=== PATIENT | male | born 1995 ===

== ENCOUNTER 2018-12-06 15:42 | Inpatient (IN) | payer OTHER ==
--- NOTE | 2018-12-06 17:26 | ED ---
Altered Mental Status - HPI Summary HPI Summary: This patient is a 23 year old male presenting to [facility] accompanied by friends with a chief complaint of AMS since 5 hours ago. According to patient, he was supposed to get a ride to [facility] from a friend, but his friend did not show up on time. Patient then decided to walk to [facility]. Patients friends became concerned for him when he did no answer his phone. Patient eventually crossed paths with them on the road, still walking. Patient states that lots of the background seemed the same, so I cant be really descriptive. Patient does not seem aware of how long he had been walking, but his friends state that he had been walking for around 5 hours. Patient was then brought to the ED for concerns of exposure and possible MHE. Patient additionally complains of midline neck pain in the base of his skill and double vision last night. Patient states that the neck pain is no longer bothering him. Patient denies any mechanism of injury and further denies chest pain, SOB, abd pain. The pain is rated 4/10 in severity. Symptoms aggravated by nothing. Symptoms alleviated by nothing. Afterwards, we talked to patients close friend, who is a resident at [facility]-- Bret Tenorio ([phone])--who explained further. According to the friend, the patient has a long history of insomnia spends long hours absorbed into one subject or another. Occasionally, he becomes very excited about it and has an elevated mood that is mildly manic, but not delusional. 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 The friend also notes that he has been contacting his family less than usual and having some angrier conversations. Todays walking episode was prompted when another friend, Kush, came to pick him up for [facility]. Kush states that the patient presented with paranoid delusions, telling him, How can I trust you, and fearing that Kush had a weapon. Kush then went to the [facility] and the patient was gone upon his return. On the way out of town, his friends noticed the patient walking on the side of the road. Upon picking him up, he was very disoriented and didnt know where he was or what day of the week it was. 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 Patient would also keep repeating the same thing and would trip over his words, e.g saying fife-teen instead of fifteen. When he was found and brought to the ED, he was oblivious to the cold and his fingertips and ears were swollen and red. At 1901, we met with his friends once more for more information regarding his affect during the car ride to the ED. His friends state that the patient stated that felt like he was told to wander around until he found his family. It was not so much auditory hallucinations, but a compulsion. In addition, patient began talking about his . He stated that he had a message that he wants to be spread, and if he happens to , his friends are trusted to spread his message. He repeated this multiple times, in the car, in the ED, and repeated to multiple friends. Kushgladys Fermin ([phone]), the friend who picked him also elaborated on the event. Kush stated that he attempted to get in contact with the patient at 0800 , but was not able to. Instead, Kush went to the patients house at 0900 to check if he was alright. At around 1000, the patient opened the door to Kush, but said to him, Are you sure you dont want to kill me? and expressed multiple times that he felt like Kush was here to harm him. Kush notes that the patient repeatedly apologized for the thoughts, but continued to doubt Kush. The patient noted that he was, not ok, and eventually asked Kush to empty his pockets to prove that he did not have a weapon. Eventually, Kush decided to leave the house and wait outside to help the patients unease. - History Of Current Complaint Chief Complaint: EDNeckComplaint Stated Complaint: NECK PAIN Time Seen by Provider: 12/06/18 17:05 Hx Obtained From: Patient, Other: - pt's [employer] friends, multiple Onset/Duration: Still Present Timing: Constant Severity Initially: Moderate Severity Currently: Moderate Character: Confusion Aggravating Factor(s): Nothing Alleviating Factor(s): Nothing Associated Signs And Symptoms: Positive: Negative - chest pain, SOB, abd pain Has Suicidal: Thoughts - Negative, but is talking about his Has Homicidal: Thoughts - Negative - Allergies/Home Medications Allergies/Adverse Reactions: Allergies Allergy/AdvReac Type Severity Reaction Status Date / Time aripiprazole [From Abilify] Allergy Anaphylatic Verified 12/06/18 17:57 Shock Home Medications: Home Medications NK [No Home Medications Reported] 12/06/18 [History Confirmed 12/06/18] PMH/Surg Hx/FS Hx/Imm Hx Previously Healthy: Yes Cardiovascular History: Denies: Hx Hypertension Opthamlomology History: Denies: Hx Legally Blind EENT History: Denies: Hx Deafness Psychiatric History: Reports: Other Psychiatric Issues/Disorders - hx allergy to abilify,?indicating hx bipolar,pt living in [place] since 2017 - Surgical History Surgery Procedure, Year, and Place: none Infectious Disease History: No Infectious Disease History: Denies: Traveled Outside the [place] in Last 30 Days - Family History Known Family History: Positive: Other - states he doesn't know his father, after a volatile divorce. M A&W Negative: Hypertension - Social History Occupation: Student - Master's student at [employer] Lives: Dormitory/Roommates Alcohol Use: None Hx Substance Use: No Substance Use Type: Reports: None Hx Tobacco Use: No Smoking Status (MU): Never Smoked Tobacco Review of Systems Negative: Fever Eyes: Other - double vision, resolved Negative: Chest Pain Negative: Shortness Of Breath Negative: Abdominal Pain Positive: no symptoms reported Musculoskeletal: Negative Positive: Other - hands were red and swollen earlier after walking outside in cold weather x 5 hrs Neurological: Other - Neck pain Psychological: Other - calm, cooperative, denies SI/HI, has delusional and paranoid statements All Other Systems Reviewed And Are Negative: Yes Physical Exam - Summary Physical Exam Summary: Appearance: Well-appearing, moderate pain distress at right paraspinous neck muscles, well-nourished, tachycardic Skin: Warm, color reflects adequate perfusion, dry Head: Normal Head/Face inspection, atraumatic Eyes: Conjunctiva injected red, bilaterally, no exudate, pupils 3mm bilaterally and reactive ENT: Normal inspection, pharynx clear Neck: Supple, no nodes, no JVD Respiratory: Lungs clear, normal breath sounds, no respiratory distress Cardio: RRR, No murmur, pulses normal, brisk capillary refill Abdomen: Soft, nontender Bowel sounds: Present Musculoskeletal: Strength Intact/ROM intact, no calf tenderness, no edema. Psychological: avoids eye contact, calm, cooperative, denies SI/HI. Repeats concerns, perseverates. Cannot recall details of 5 hr wandering. Neuro: Alert, muscle tone normal, no focal deficit Triage Information Reviewed: Yes Vital Signs On Initial Exam: Initial Vitals Temp Pulse Resp BP Pulse Ox 98.4 F 87 20 85/73 100 12/06/18 15:45 12/06/18 15:45 12/06/18 15:45 12/06/18 15:45 12/06/18 15:45 Vital Signs Reviewed: Yes Diagnostics - Vital Signs Vital Signs Temp Pulse Resp BP Pulse Ox 12/06/18 15:45 98.4 F 87 20 85/73 100 - Laboratory Result Diagrams: 12/06/18 18:03 12/06/18 18:03 Lab Statement: Any lab studies that have been ordered have been reviewed, and results considered in the medical decision making process. Re-Evaluation - Re-Evaluation First Eval Re-Evaluation Time: 19:00 Change: Unchanged Comment: Pt feels well. Agrees to mental health consult. Two friends are with pt. Denies pain. Tachycardic 133. IV fluids 1 liter ordered. Altered Mental Statu Course/Dx - Course Course Of Treatment: This patient is a 23 year old male presenting to [facility] accompanied by friends with a chief complaint of AMS since 5 hours ago. Bloodwork Obtained. Urinalysis Obtained. In the ED course the patient was given NS 0.9% IV bolus. The pt is hemodynamically stable, alert and oriented x3. Patient will be signed out to Dr. Alvarado at the end of shift, pending MHE. The patient is agreeable with this plan. - Diagnoses Differential Diagnosis/HQI/PQRI: Hypoglycemia, Hypothermia, Injury, Intoxication , Medication Reaction, Metabolic Disorder, Overdose, Seizure, Other - acute psychosis Provider Diagnoses: Paranoid behavior, Confusion with non-focal neuro exam, Delusional disorder Discharge - Sign-Out/Discharge Documenting (check all that apply): Sign-Out Patient Signing out patient TO: Dawson Alvarado - 12/06/18, 19:00 at change of shift, pending MHE - Discharge Plan Condition: Stable Referrals: [facility] Rj OVERTON [Primary Care Provider] - - Billing Disposition and Condition Condition: STABLE - Attestation Statements Document Initiated by Scribe: Yes Documenting Scribe: Angel Cohen Provider For Whom Christiibdenis is Documenting (Include Credential): Amy Lewis MD Scribe Attestation: I, Angel Cohen, scribed for Amy Lewis MD on 12/06/18 at 2237. Scribe Documentation Reviewed: Yes Provider Attestation: The documentation as recorded by the Angel arellano accurately reflects the service I personally performed and the decisions made by me, Amy Lewis MD Status of Scribe Document: Viewed
[2018-12-06 18:13] LABS: ABS Basophils 0.1 10^3/ul (0-0.2); ABS Eosinophils 0 10^3/ul (0-0.6); ABS Lymphocytes 1.5 10^3/ul (1.0-4.8); ABS Monocytes 1.3 10^3/ul (0-0.8); ABS Neutrophils 11.1 10^3/ul (1.5-7.7); ABS Nucleated RBC 0 10^3/ul; Eosinophil % 0.2 %; Hematocrit 47 % (42-52); Hemoglobin 15.8 g/dl (14.0-18.0); Lymphocyte % 10.7 %; Mean Corpuscular HGB Conc 34 g/dl (31-36); Mean Corpuscular Hemoglobin 28 pg (27-31); Mean Corpuscular Volume 84 fL (80-94); Mean Platelet Volume 9.7 fL (7.4-10.4); Nucleated Red Blood Cells % 0; Platelet Count 181 10^3/ul (150-450); Red Blood Count 5.56 10^6/ul (4.00-5.40); Red Cell Distribution Width 13 % (10.5-15)
[2018-12-06 18:32] LABS: ALT 20 U/L (7-52); AST 35 U/L (13-39); Albumin 4.9 g/dL (3.2-5.2); Albumin/Globulin Ratio 1.6 (1-3); Alkaline Phosphatase 62 U/L (34-104); Anion Gap 8 mmol/L (2-11); BUN/Creatinine Ratio 18.7 (8-20); Blood Urea Nitrogen 23 mg/dL (6-24); CO2 Carbon Dioxide 28 mmol/L (22-32); Calcium 9.9 mg/dL (8.6-10.3); Chloride 104 mmol/L (101-111); EGFR African American 86.8 (>60); EGFR Non-African American 71.7 (>60); Globulin 3.1 g/dL (2-4); Glucose 111 mg/dL (70-100); Potassium 3.9 mmol/L (3.5-5.0); Sodium 140 mmol/L (135-145)
[2018-12-06] MEDS ORDERED: NS 0.9% 1000 ML** 1,000 ML BOLUS SCH (18:45)
[2018-12-06] MEDS ORDERED: NS 0.9% 1000 ML** 1,000 ML IV ONE (19:18)
[2018-12-06 19:52] LABS: Acetaminophen < 15 mcg/mL; Alcohol < 10 mg/dL (<10); Salicylate < 2.50 mg/dL (<30)
[2018-12-07] MEDS ORDERED: LORazepam TAB(*) 1 MG PO ONE ×2 (03:12→14:51)
--- NOTE | 2018-12-07 04:09 | ED ---
Progress - Progress Note Progress Note: Received pt sign out from Dr. Lewis awaiting MHE. Following MHE, pt is awaiting transfer. Pt will be signed out to Dr. Warren, awaiting transfer. Re-Evaluation - Re-Evaluation First Eval Re-Evaluation Time: 19:00 Change: Unchanged Comment: Pt feels well. Agrees to mental health consult. Two friends are with pt. Denies pain. Tachycardic 133. IV fluids 1 liter ordered. Course/Dx - Course Course Of Treatment: Received pt sign out from Dr. Lewis awaiting MHE. Following MHE, pt is awaiting transfer. Pt will be signed out to Dr. Warren, awaiting transfer. - Diagnoses Provider Diagnoses: Psychosis Discharge - Sign-Out/Discharge Documenting (check all that apply): Patient Departure - Transfer, Sign-Out Patient Signing out patient TO: Juan Warren - Discharge Plan Condition: Stable Disposition: TRANS HIGHER LVL OF CARE FAC Referrals: [facility] - Rj [Primary Care Provider] - - Billing Disposition and Condition Condition: STABLE Disposition: Trans Higher Lvl of Care Fac - Attestation Statements Document Initiated by Scribe: Yes Documenting Scribe: Sami Ibarra Provider For Whom Scribe is Documenting (Include Credential): Dr. Dawson Alvarado MD Scribe Attestation: Sami Flannery, suzannaed for Dr. Dawson Alvarado MD on 12/08/18 at 0155. Scribe Documentation Reviewed: Yes Provider Attestation: The documentation as recorded by the scribe, Sami Ibarra accurately reflects the service I personally performed and the decisions made by , Dr. Dawson Alvarado MD Status of Scribe Document: Viewed
--- NOTE | 2018-12-07 07:38 | ED ---
Progress - Progress Note Progress Note: Receiving sign out from Dr. Alvarado, pending transfer. Pt will be signed out to Dr. Alvarado, pending transfer. Re-Evaluation - Re-Evaluation First Eval Re-Evaluation Time: 19:00 Change: Unchanged Comment: Pt feels well. Agrees to mental health consult. Two friends are with pt. Denies pain. Tachycardic 133. IV fluids 1 liter ordered. Course/Dx - Course Course Of Treatment: Patient stable throughout this shift and signed back over to Dr. Fragoso pending transfer - Diagnoses Provider Diagnoses: Paranoid behavior Discharge - Sign-Out/Discharge Documenting (check all that apply): Sign-Out Patient, Receiving Sign-Out Signing out patient TO: Dawson Alvarado Receiving patient FROM: Dawson Alvarado - Discharge Plan Condition: Stable Disposition: TRANS HIGHER LVL OF CARE FAC Referrals: [facility] - Rj OVERTON [Primary Care Provider] - - Billing Disposition and Condition Condition: STABLE Disposition: Trans Higher Lvl of Care Fac - Attestation Statements Document Initiated by Scribe: Yes Documenting Scribe: Emelyn Rosenbaum Provider For Whom Yong is Documenting (Include Credential): Juan Warren MD Scribe Attestation: Emelyn Flannery, scribed for Juan Warren MD on 12/07/18 at 1849. Scribe Documentation Reviewed: Yes Provider Attestation: The documentation as recorded by the scribeEmelyn accurately reflects the service I personally performed and the decisions made by me, Juan Warren MD Status of Scribe Document: Viewed
--- NOTE | 2018-12-07 13:46 | PN ---
ED Flex Patient Progress Note Date of Service: 12/07/18 Subjective: This is a 23 year-old M who is pending admission to [facility] / transfer to another psychiatric facility / discharge to home / or being observed secondary to disorganized behavior and thinking and gross delusions. He c/o of not having slept for several days. Objective: Alert, psychotically related, mildly agitated, long latencies in speech, appears to be responding internal stimuli, hyperreligious delusions. He denies SI/HI. Assessment: Acutely psychotic patient. Plan: Pending psychiatric transfer / admit / will follow up daily. Vital Signs Temp Pulse Resp BP Pulse Ox 98.4 F 120 18 113/70 100 12/06/18 15:45 12/06/18 22:06 12/07/18 03:31 12/06/18 22:36 12/07/18 00:00 Lab Results - Entire Visit 12/06/18 12/06/18 12/06/18 18:03 18:03 18:03 WBC 14.0 H RBC 5.56 H Hgb 15.8 Hct 47 MCV 84 MCH 28 MCHC 34 RDW 13 Plt Count 181 MPV 9.7 Neut % (Auto) 79.3 Lymph % (Auto) 10.7 Emmet % (Auto) 9.3 Eos % (Auto) 0.2 Baso % (Auto) 0.5 Absolute Neuts (auto) 11.1 H Absolute Lymphs (auto) 1.5 Absolute Monos (auto) 1.3 H Absolute Eos (auto) 0 Absolute Basos (auto) 0.1 Absolute Nucleated RBC 0 Nucleated RBC % 0 Sodium 140 Potassium 3.9 Chloride 104 Carbon Dioxide 28 Anion Gap 8 BUN 23 Creatinine 1.23 H Est GFR ( Amer) 86.8 Est GFR (Non-Af Amer) 71.7 BUN/Creatinine Ratio 18.7 Glucose 111 H Lactic Acid 1.4 Calcium 9.9 Total Bilirubin 1.30 H AST 35 ALT 20 Alkaline Phosphatase 62 Troponin I 0.00 Total Protein 8.0 Albumin 4.9 Globulin 3.1 Albumin/Globulin Ratio 1.6 Salicylates < 2.50 Acetaminophen < 15 Serum Alcohol < 10
[2018-12-07] MEDS ORDERED: Haloperidol TAB* 5 MG PO ONE (14:51)
--- NOTE | 2018-12-07 19:39 | ED ---
Progress - Progress Note Progress Note: Receiving sign out from Dr. Warren, at shift change, pending MH transfer. - Consult/PCP Time Called: 00:00 Re-Evaluation - Re-Evaluation First Eval Re-Evaluation Time: 00:00 Course/Dx - Course Course Of Treatment: Sign-out received from Dr. Warren at shift change pending MH transfer. - Diagnoses Provider Diagnoses: Psychosis Discharge - Sign-Out/Discharge Documenting (check all that apply): Receiving Sign-Out Receiving patient FROM: Juan Warren - pending MH transfer - Discharge Plan Condition: Stable Disposition: TRANS HIGHER LVL OF CARE FAC Referrals: [facility] [Primary Care Provider] - - Billing Disposition and Condition Condition: STABLE Disposition: Trans Higher Lvl of Care Fac - Attestation Statements Document Initiated by Scribe: Yes Documenting Scribe: Bharath Ta Provider For Whom Scribe is Documenting (Include Credential): Dr. Dawson Alvarado MD Scribe Attestation: I, suzanna Clarked for Dr. Dawson Alvarado MD on 12/08/18 at 0513. Scribe Documentation Reviewed: Yes Provider Attestation: The documentation as recorded by the Bharath arellano accurately reflects the service I personally performed and the decisions made by me, Dr. Dawson Alvarado MD Status of Scribe Document: Viewed
[2018-12-07] MEDS ORDERED: OLANzapine TAB*ODT* 10 MG TAB PO ONE (20:12)
[2018-12-07] MEDS ORDERED: OLANzapine TAB* 5 MG ONE (20:15)
--- NOTE | 2018-12-08 09:51 | ED ---
Progress - Progress Note Progress Note: Patient was signed out to Dr. Maulik Jimenez from Dr. Dawson Alvarado, pending MH Transfer, upon shift change on 12/08/2018 at 0700. - Consult/PCP Time Called: 00:00 Re-Evaluation - Re-Evaluation First Eval Re-Evaluation Time: 00:00 Change: Unchanged Comment: Pt feels well. Agrees to mental health consult. Two friends are with pt. Denies pain. Tachycardic 133. IV fluids 1 liter ordered. Course/Dx - Course Course Of Treatment: Patient was signed out to Dr. Maulik Jimenez from Dr. Dawson Alvarado, pending MH Transfer, upon shift change on 12/08/2018 at 0700. - Diagnoses Provider Diagnoses: Unspecified psychosis - Provider Notifications Discussed Care Of Patient With: Art Parada Time Discussed With Above Provider: 09:25 Instructed by Provider To: Other - Accepts patient for admission. Discharge - Sign-Out/Discharge Documenting (check all that apply): Patient Departure - ADMIT, Sign-Out Patient - EHMKE Signing out patient TO: Art Parada Receiving patient FROM: Maulik Jimenez - Discharge Plan Condition: Stable [place] [place]illing Disposition and Condition Condition: STABLE Disposition: [facility] [facility] [place] Attestation Statements Document Initiated by Scribe: Yes Documenting Scribe: Nav Dee Provider For Whom Yong is Documenting (Include Credential): Maulik Jimenez MD Scribe Attestation: Nav Flannery scribed for Maulik Jimenez MD on 12/08/18 at 1010. Scribe Documentation Reviewed: Yes Provider Attestation: The documentation as recorded by the ajibNav barrios accurately reflects the service I personally performed and the decisions made by me, Maulik Jimenez MD Status of Scribe Document: Viewed Attestations Scribe Attestation: Nav Dee User Type: Provider
--- NOTE | 2018-12-08 10:47 | PN ---
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 Patient continues to be paranoid and frightened. Objective: young male in scrubs; thought disorganized and delusional Assessment: Unspecified Psychotic DO Plan: Will admit to the adult [facility] on involuntary 9.39 legal status. Vital Signs Temp Pulse Resp BP Pulse Ox 98.4 F 120 16 113/70 100 12/06/18 15:45 12/06/18 22:06 12/07/18 15:08 12/06/18 22:36 12/07/18 00:00 Lab Results - Entire Visit 12/06/18 12/06/18 12/06/18 18:03 18:03 18:03 WBC 14.0 H RBC 5.56 H Hgb 15.8 Hct 47 MCV 84 MCH 28 MCHC 34 RDW 13 Plt Count 181 MPV 9.7 Neut % (Auto) 79.3 Lymph % (Auto) 10.7 Sterling % (Auto) 9.3 Eos % (Auto) 0.2 Baso % (Auto) 0.5 Absolute Neuts (auto) 11.1 H Absolute Lymphs (auto) 1.5 Absolute Monos (auto) 1.3 H Absolute Eos (auto) 0 Absolute Basos (auto) 0.1 Absolute Nucleated RBC 0 Nucleated RBC % 0 Sodium 140 Potassium 3.9 Chloride 104 Carbon Dioxide 28 Anion Gap 8 BUN 23 Creatinine 1.23 H Est GFR ( Amer) 86.8 Est GFR (Non-Af Amer) 71.7 BUN/Creatinine Ratio 18.7 Glucose 111 H Lactic Acid 1.4 Calcium 9.9 Total Bilirubin 1.30 H AST 35 ALT 20 Alkaline Phosphatase 62 Troponin I 0.00 Total Protein 8.0 Albumin 4.9 Globulin 3.1 Albumin/Globulin Ratio 1.6 Salicylates < 2.50 Acetaminophen < 15 Serum Alcohol < 10
[2018-12-08] MEDS ORDERED: Haloperidol TAB* 5 MG PO ONE (16:24)
[2018-12-08] MEDS ORDERED: LORazepam TAB(*) 1 MG PO ONE (16:24)
[2018-12-08] MEDS ORDERED: OLANzapine TAB*ODT* 5 MG PO ONE (16:27)
[2018-12-09] MEDS ORDERED: OLANzapine TAB* 5 MG ONE (01:07)
[2018-12-09] MEDS ORDERED: OLANzapine TAB* 5 MG PO ONE (01:10)
[2018-12-09] MEDS ORDERED: Haloperidol INJ IV/IM* 5 MG/ML AMP ONE (02:39)
[2018-12-09] MEDS ORDERED: Haloperidol INJ IV/IM* 5 MG/ML AMP IM ONE (02:50)
[2018-12-09] MEDS ORDERED: diPHENhydraMINE IV* 50 MG/ML 1 ml VIAL (BENADRYL) IM ONE (02:50)
--- NOTE | 2018-12-09 11:31 | PN ---
MHU: Group Therapy Note - Service Type Service Type: [id number] Group Psychotherapy - Cognitive Behavioral Group Therapy ( CBT):Patient was attentive and participatory in CBT programming this morning, and remained in good behavioral control. Patient expressed positive insights regarding relevant treatment interventions and goals.
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
[2018-12-09] MEDS ORDERED: clonazePAM TAB(*) 0.5 MG PO ONE (13:49)
[2018-12-09] MEDS ORDERED: Lithium Carbonate TAB* 300 MG PO SCH (14:00)
[2018-12-09] MEDS ORDERED: QUEtiapine TAB* 25 MG PO ONE (15:07)
[2018-12-09] MEDS: clonazePAM TAB(*) 0.5 MG PO PRN ×2 (15:36→16:16)
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
[2018-12-09] MEDS ORDERED: QUEtiapine TAB* 100 MG PO SCH (21:00)
[2018-12-10 07:05] LABS: EGFR African American 122.8 (>60); EGFR Non-African American 101.5 (>60); HDL Cholesterol 37.1 mg/dL
[2018-12-10 07:40] LABS: TSH (Thyroid Stimulating Horm) 1.05 mcIU/mL (0.34-5.60)
[2018-12-10] MEDS: Lithium Carbonate TAB* 300 MG PO SCH ×2 (09:44→20:53)
--- NOTE | 2018-12-10 13:34 | PN ---
Subjective - Subjective Date of Service: 12/10/18 Service Type: 29259 Hosp care 35 min high complexity Subjective: Nursing report: Patient has been intrusive with staff and peers. CC "Ca doctor Justification for admission: For immediate safety Patient was seen and evaluated today in the common room. He was seen interrupting conversations with other peers. He called his mother around 9am. He denied sleeping yesterday and said he was praying last night. Upon reminding him that staff saw him sleeping overnight he changed his story saying he was praying in his sleep. He was heard in his room yelling adventism verses. He said " I will go to my room where angels are." An hour after our first visit he asked"Doctor are you going to see me today?" When asked about treatment he says "Doctor, the only thing that can get me better is [facility]." He was found putting his hands on other peers. His mother called the [facility] and spoke to medical writer. She said that he remembered a conversation he had with his grandmother. She said that he is usually always happy and doesn't remember him ever being depressed. She worries that this has something to do with his not sleeping for a week and a half. He denied hearing things that other people do not hear or seeing things other people do not see. He denied feeling that the TV is making references. He said that he is trustful of others and feels safe on the unit. The patient denied auditory and/ or visual hallucinations. Objective - Appearance Dysmorphic Features: No Hygiene: Normal Grooming: Fairly Well Kept - Behavior Psychomotor Activities: Normal Exhibits Abnormal Movement: No - Attitude and Relatedness Attitude and Relatedness: Superficially Cooperative Eye Contact: Fair - Speech Quality: Unpressured Latencies: Short Quantity: Terse - Mood Patient's Decription of Mood: "Fine" - Affect Observed Affect: Non-labile Affect Consistent with: Euthymia - Thought Process Patient's Thought Process: Disorganized, Tangential Thought Content: No Passive Wish, No Suicidal Planning, No Homicidal Ideation, No Paranoid Ideation - Sensorium Experiencing Hallucinations: No, Sensorium is Clear Type of Hallucinations: Visual: No, Auditory: No, Command: No - Level of Consciousness Level of Consciousness: Alert Orientation: Yes Intact, Yes Orientated to Time, Yes Orientated to Place, Yes Orientated to Person - Impulse Control Impulse Control: Impaired - Insight and Judgement Insight and Judgement: Poor - Group Participation Particating in Group Activities: No - Medication Management Medication Management Adherence: Yes Assessment - Assessment Merits Inpatient Hospitalization: For Immediate Safety Clinical Impression: 23 year old single male no children [place]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 Since admission he has been intrusive with staff and peers and has been acting bizarre Plan - Plan Treatment Plan: Name: BERTRAM GIRON Birthdate: 1995 [id number] Plan # Justification for Admission: For immediate safety as it relates to being a danger to himself and unable to appreciate his treatment needs. # 9.39 admission. The patient requires inpatient admission at this time to assure safety, receive treatment and work toward stabilization. # Start lithium 300mg PO BID daily. Most recent Cr is 0.91. # Increase Seroquel 200mg PO QHS and 100mg QPM. No signs of dystonia observed overnight. # Klonopin 0.5mg TID PRN for anxiety. To follow up on Li level and WBC Q15 minute observation. Family meeting on Saturday around 10am Goals to include increase sleep and improve organization of thoughts and behaviors. The risks, benefits, and alternative treatment options were discussed as well as of the risks of refusing treatment. Treatment associated risks discussed . After this discussion and an acknowledgement of this understanding, he made the decision for the current type of treatment despite these risks. Continued Medication Management: Start Medication Medications: Current Medications Acetaminophen (Tylenol Tab*) 650 mg PO Q4H PRN PRN Reason: PAIN Clonazepam (Klonopin Tab(*)) 0.5 mg PO TID PRN PRN Reason: ANXIETY Last Admin: 12/09/18 16:16 Dose: 0.5 mg [place] Carbonate ([place] Carbonate Tab*) 300 mg PO BID [facility] Last Admin: 12/10/18 09:44 Dose: 300 mg Quetiapine Fumarate (Seroquel Tab*) 200 mg PO BEDTIME [facility] Last Admin: 12/10/18 00:00 Dose: Not Given Quetiapine Fumarate (Seroquel Tab*) 100 mg PO DAILY [facility] - Discharge Plan Discharge Plan: Inpatient Hospitalization Outpatient Program: Counseling/Psych Services at [place]
[2018-12-10] MEDS: QUEtiapine TAB* 100 MG PO SCH ×3 (13:35→20:53)
[2018-12-10] MEDS: clonazePAM TAB(*) 0.5 MG PO PRN ×3 (13:38→19:10)
[2018-12-11] MEDS: QUEtiapine TAB* 100 MG PO SCH ×2 (09:57→22:04)
[2018-12-11] MEDS: Lithium Carbonate TAB* 300 MG PO SCH (09:57)
--- NOTE | 2018-12-11 13:50 | PN ---
Subjective - Subjective Date of Service: 12/11/18 Service Type: 30265 Hosp care 25 min moderate complexity Subjective: Nursing report: Patient has been intrusive with staff and peers. CC "Ne doctor Justification for admission: For immediate safety Patient was seen and evaluated today in his room. Before encounter he was heard chanting holiness verses. He reported that consumer loan underwriter should look up Miguelangel Velázquez, who he describes being in a cult and is out on a mission to kill him. He reported that he told security at [place] about it. He explained that the only way to be liberated is to play,the play station [employer]. His mother called the unit and wondered if his presentation could be caused by his bible studies. She inquired if the medications could be making things worse. His mother plans to come tomorrow around 10am. He denied hearing things that other people do not hear or seeing things other people do not see. He denied feeling that the TV is making references. The patient denied auditory and/ or visual hallucinations. Objective - Appearance Appearance: Healthy Appearing Dysmorphic Features: No Hygiene: Normal Grooming: Disheveled - Behavior Psychomotor Activities: Normal Exhibits Abnormal Movement: No - Attitude and Relatedness Attitude and Relatedness: Cooperative Eye Contact: Fair - Speech Quality: Unpressured Latencies: Normal Quantity: Copious - Mood Patient's Decription of Mood: "Fine" - Affect Observed Affect: Expansive Affect Consistent with: Euphoria - Thought Process Patient's Thought Process: Goal Directed, Tangential Thought Content: No Passive Wish, No Suicidal Planning, No Homicidal Ideation, No Paranoid Ideation - Sensorium Experiencing Hallucinations: No, Sensorium is Clear Type of Hallucinations: Visual: No, Auditory: No, Command: No - Level of Consciousness Level of Consciousness: Alert Orientation: No Intact, No Orientated to Time, No Orientated to Place, No Orientated to Person - Impulse Control Impulse Control: Poor - Insight and Judgement Insight and Judgement: Poor - Group Participation Particating in Group Activities: No - Medication Management Medication Management Adherence: Yes Assessment - Assessment Merits Inpatient Hospitalization: For Immediate Safety Clinical Impression: 23 year old single male no children [place]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 Since admission he has been intrusive with staff and peers and has been acting bizarre . Little improvement has been observed. Plan - Plan Treatment Plan: Name: BERTRAM GIRON Birthdate: 1995 [id number] Plan # Justification for Admission: For immediate safety as it relates to being a danger to himself and unable to appreciate his treatment needs. # 9.39 admission. The patient requires inpatient admission at this time to assure safety, receive treatment and work toward stabilization. # Increase lithium to 450mg BID. Most recent Cr is 0.91. #Continue Seroquel 200mg PO QHS and increase to 200mg QAM. # Klonopin 0.5mg TID PRN for anxiety. To follow up on Li level and WBC he refused todays collection Family meeting on Saturday around 10am Goals to include increase sleep and improve organization of thoughts and behaviors. The risks, benefits, and alternative treatment options were discussed as well as of the risks of refusing treatment. Treatment associated risks discussed . After this discussion and an acknowledgement of this understanding, he made the decision for the current type of treatment despite these risks. Continued Medication Management: Start Medication Medications: Current Medications Acetaminophen (Tylenol Tab*) 650 mg PO Q4H PRN PRN Reason: PAIN Clonazepam (Klonopin Tab(*)) 0.5 mg PO TID PRN PRN Reason: ANXIETY Last Admin: 12/10/18 19:10 Dose: 0.5 mg [place] Carbonate ([place] Carbonate Tab*) 300 mg PO BID [facility] Last Admin: 12/11/18 09:57 Dose: 300 mg Quetiapine Fumarate (Seroquel Tab*) 200 mg PO BEDTIME [facility] Last Admin: 12/10/18 20:53 Dose: 200 mg Quetiapine Fumarate (Seroquel Tab*) 100 mg PO DAILY [facility] Last Admin: 12/11/18 09:57 Dose: 100 mg - Discharge Plan Discharge Plan: Inpatient Hospitalization Outpatient Program: Counseling/Psych Services at [place]
[2018-12-11] MEDS: Lithium Carbonate CAP 150 MG ** CAPSULE PO SCH (22:03)
[2018-12-12] MEDS: clonazePAM TAB(*) 0.5 MG PO PRN (02:40)
[2018-12-12] MEDS: Lithium Carbonate CAP 150 MG ** CAPSULE PO SCH ×2 (07:54→19:16)
[2018-12-12] MEDS: QUEtiapine TAB* 100 MG PO SCH ×2 (07:54→19:16)
--- NOTE | 2018-12-12 08:19 | PN ---
Subjective - Subjective Date of Service: 12/12/18 Service Type: 24758 Hosp care 35 min high complexity Subjective: Patient intrusive with staff calling them his . He is fixated on Mika Young out to end the world and kill all non believers. He feels that he will be shot if he leaves the hospital. He reported before meeting with his mother that his mother is corrupted and can not be trusted. He goes on to explain that he has a that is one of the staff members. According to nursing report he did not sleep overnight.He denied hearing voices or seeing visions.He denied suicidal and /or homicidal ideation intent or plan. Objective - Appearance Appearance: Well Developed/Nourished Dysmorphic Features: No Hygiene: Normal Grooming: Fairly Well Kept - Behavior Psychomotor Activities: Abnormal-Increased Exhibits Abnormal Movement: No - Attitude and Relatedness Attitude and Relatedness: Psychotically Related Eye Contact: Poor - Speech Quality: Pressured Latencies: Short Quantity: Copious - Mood Patient's Decription of Mood: "Anxious" - Affect Observed Affect: Expansive Affect Consistent with: Euphoria - Thought Process Patient's Thought Process: Loose Associations Thought Content: No Passive Wish, No Suicidal Planning, No Homicidal Ideation, No Paranoid Ideation - Sensorium Experiencing Hallucinations: No, Sensorium is Clear Type of Hallucinations: Visual: No, Auditory: No, Command: No - Level of Consciousness Level of Consciousness: Alert Orientation: Yes Intact, Yes Orientated to Time, Yes Orientated to Place, Yes Orientated to Person - Impulse Control Impulse Control: Poor - Insight and Judgement Insight and Judgement: Poor - Group Participation Particating in Group Activities: No - Medication Management Medication Management Adherence: Yes Assessment - Assessment Clinical Impression: 23 year old single male no children [employer] student presented to the ED with after 2 friends found him after he was lost walking outside for hours and hyper advent. Since admission he has been intrusive with staff and peers and has been acting bizarre Plan - Plan Treatment Plan: Name: BERTRAM GIRON Birthdate: 1995 [id number] Plan # Justification for Admission: For immediate safety as it relates to being a danger to himself and unable to appreciate his treatment needs. # 9.39 admission. The patient requires inpatient admission at this time to assure safety, receive treatment and work toward stabilization. # Continue lithium to 450mg BID. #Continue Seroquel 200mg PO QHS and 200mg QAM. # D/C Klonopin and start Valium 10mg QPM Labs ordered RPR, B12, folate, HIV. CT Brain wo to rule out other causes of Psychosis. Monitor vital signs Q12H Meeting with mother at 10am this morning, she confirms deviation from baseline and lack of reality based thinking that is new onset. Goals to include increase sleep and improve organization of thoughts and behaviors. The risks, benefits, and alternative treatment options were discussed as well as of the risks of refusing treatment. Treatment associated risks discussed . After this discussion and an acknowledgement of this understanding, he made the decision for the current type of treatment despite these risks. Laboratory Results - last 24 hr 12/12/18 12/12/18 08:45 08:45 WBC 6.1 Creatinine 0.84 Est GFR ( Amer) 134.7 Est GFR (Non-Af Amer) 111.3 [place] 0.66 Continued Medication Management: Start Medication Medications: Current Medications Acetaminophen (Tylenol Tab*) 650 mg PO Q4H PRN PRN Reason: PAIN Clonazepam (Klonopin Tab(*)) 0.5 mg PO TID PRN PRN Reason: ANXIETY Last Admin: 12/12/18 02:40 Dose: 0.5 mg [place] Carbonate ([place] Carbonate Cap) 450 mg PO BID [facility] Last Admin: 12/12/18 07:54 Dose: 450 mg Quetiapine Fumarate (Seroquel Tab*) 200 mg PO BEDTIME [facility] Last Admin: 12/11/18 22:04 Dose: 200 mg Quetiapine Fumarate (Seroquel Tab*) 200 mg PO DAILY [facility] Last Admin: 12/12/18 07:54 Dose: 200 mg - Discharge Plan Discharge Plan: Inpatient Hospitalization Outpatient Program: Counseling/Psych Services at [place]
[2018-12-12 09:43] LABS: EGFR African American 134.7 (>60); EGFR Non-African American 111.3 (>60); Lithium 0.66 mmol/L (0.6-1.2)
[2018-12-12 12:02] LABS: Folate > 20.00 ng/mL (>3.99)
[2018-12-12] MEDS ORDERED: LORazepam TAB(*) 0.5 MG PO PRN (15:39)
[2018-12-12] MEDS ORDERED: Diazepam TAB(*) 10 MG PO SCH (18:00)
[2018-12-13] MEDS: Acetaminophen TAB* 325 MG PO PRN (03:23)
[2018-12-13] MEDS: QUEtiapine TAB* 100 MG PO SCH ×2 (07:41→20:17)
[2018-12-13] MEDS: Lithium Carbonate CAP 150 MG ** CAPSULE PO SCH ×2 (07:41→20:17)
[2018-12-13] MEDS: clonazePAM TAB(*) 0.5 MG PO SCH ×2 (11:01→13:47)
--- NOTE | 2018-12-13 12:55 | CONS ---
[facility] MEDICINE CONSULTATION REPORT: DATE OF CONSULTATION: 12/12/18 ATTENDING PHYSICIAN: Dr. Olivas. CONSULTING PHYSICIAN: Dr. Alvin Tijerina (dictated by Nehal Galloway NP). REASON FOR CONSULT: Tachycardia. HISTORY OF PRESENT ILLNESS: Mr. Urbina is a 23-year-old male with past medical history significant for PTSD and history of prior suicide attempts, last in 2016. The patient was initially brought to the emergency room after 2 friends found him; he was lost. Per the emergency room report, the patient was walking outside for hours, became manic, but was not delusional, and spent long hours becoming absorbed in various topics. 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 The patient reports that he did not sleep for several days and was not eating and drinking. He states that his friend came to pick him up for the sermon, and he panicked and got stage fright, so he ran away. When he was found by his friends, he reports that he was brought to the emergency room. Today in reviewing the patient, he reports that if they do not work together, his body will become possessed and "I will kill everyone." The patient also reports that as his memory fades, "Bab[place] becomes stronger and will invade his body." He also reports that he has some shoulder pain and eventually, it will radiate down his arm and that will as well leave to [place]. The patient also reports that as his heart races , his strength is being pulled to [place] and that is why he is having the increased heart rates as they are trying to take over his body. The patient reports "I feel completely better." He reports that he was able to get rest last evening and feels better today. He also reports that he is now drinking, where he had not been drinking for a couple of days. During the interview, the patient had to be redirected several times back to conversation to answer questions, but seems very pre-consumed with his body being taken over and possessed and that he would be instructed to kill everyone. The patient denies any fever, chills, unintended weight loss. Denies any chest pain or edema. Denies any cough, hemoptysis, or shortness of breath. Denies any nausea , vomiting, diarrhea, black or tarry stools, vomiting of blood. Denies any gross hematuria, dysuria, focussed weakness, or sensory loss. Denies any visual complaints, dysphagia, arthralgias, myalgias, rashes, lesions. He does feel concerned about his body becoming possessed. PAST MEDICAL HISTORY: PTSD. PAST SURGICAL HISTORY: Reports surgery on his left arm. HOME MEDICATIONS: None. ALLERGIES: Allergy to ABILIFY and KLONOPIN. FAMILY HISTORY: Denies any history of coronary artery disease, diabetes, or cancer. SOCIAL HISTORY: The patient denies any tobacco, alcohol, or illicit drug use. He currently lives with a roommate. 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 He has graduated from [employer] in [place]. He is a full code. REVIEW OF SYSTEMS: There is no documented fever, no unintended weight loss. No chest pain, edema, cough, hemoptysis, or shortness of breath. Denies any nausea, vomiting, diarrhea, abdominal pain, gross hematuria, dysuria, focal weakness, or sensory loss. Denies any visual complaints, dysphagia, arthralgias , myalgias, rashes, lesions, or open sores. The patient denies C-spine, T-spine , or L-spine tenderness. PHYSICAL EXAM: General: At this time, Mr. Urbina is a 23-year-old male. He is alert and oriented x3, very consumed with his body being possessed and instructing him to kill everyone, appears to be somewhat delusional. HEENT: Head is atraumatic, normocephalic. Eyes: EOMs are intact. Sclerae anicteric and not pale. Oral mucosa appears to be moist. Neck is supple, no nuchal rigidity is noted. He is able to touch chin to his chest. He is able to move his head [id number]. He has no C-spine, T-spine, or L-spine tenderness to palpation. Lungs are clear to auscultation bilaterally. No wheezes, rales, or rhonchi. Cardiac: S1 and S2. Regular rate and rhythm. Abdomen: Soft and nontender. Bowel sounds are present x4. He is able to move all 4 extremities with 5/5 strength. Neurologic: He is awake, alert, and oriented x3. He appears to be delusional at this time. He is able to follow commands and be redirected to answer questions. There are no gross focal deficits. Skin is intact. DIAGNOSTIC STUDIES/LAB DATA: Initial WBCs were 14.0, repeat on 12/12/18 was 6.1 ; RBCs were 5.56; hemoglobin 15.8; hematocrit was 47; platelet count was 181. Sodium was 140, potassium 3.9, chloride 104, carbon dioxide was 28, anion gap was 8, BUN was 23. Creatinine on 12/06/18 was 1.23, repeat on 12/10/18 was 0.91 , and repeat on 12/12/18 was 0.84. Initial glucose was 111. Hemoglobin A1c was 4.8. Lactic acid was 1.4. T. bili was 1.30, ASTs were 35, ALTs were 20. Lipid profile was within normal limits. Vitamin B12 was 460. Folate was greater than 20 and TSH was 105. Salicylates, acetaminophen, and alcohol were all negative on admission on 12/06/18. [place] level on 12/12/18 was 0.66. He had a CT of the brain on 12/06/18, radiologist's impression: No acute intracranial pathology. He had a C-spine CT, straightening otherwise normal C- spine. He had a repeat CT of the brain on 12/12/18, radiologist's impression: No acute intracranial pathology. He had an electrocardiogram on 12/10/18, which showed sinus tachycardia at a rate of 110, QTc was 446. IMPRESSION AND PLAN: Mr. Urbina is a 23-year-old male who presented to the emergency room on 12/06/18 and subsequently admitted to mental health unit for safety. He was originally admitted for bipolar, manic episode, and posttraumatic stress disorder. The patient has been tachycardic since admission to the emergency room. The patient did report that he was not eating and drinking for a few days prior to his admission to the hospital. Due to concern of tachycardia, we were asked to consult on the patient. Our recommendations are as follows: 1. Tachycardia. I suspect this could be related to his underlying psychosis and possible mild dehydration which appears to be resolving. His heart rate is also improving. The patient denies any chest pain or shortness of breath. Denies any palpitations. At this time, I would recommend discontinuing to monitor him and encourage p.o. fluid intake. 2. Alteration in mental status. I suspect this is related to his psychosis. He has had a CT of the brain that is negative. He denies any C-spine, T-spine, or L- spine tenderness. He has no nuchal rigidity. He is able to touch his chin to his chest without any difficulty. At this time, I do not feel he needs further evaluation of his altered mental status with a lumbar puncture as the patient is afebrile. 3. Bipolar, katt. Continue current treatment plan as prescribed by Psychiatry. 4. DVT prophylaxis as per Psychiatry. 5. Code status: He is a full code. 6. Fluid, electrolytes and nutrition: He can have a regular diet as tolerated and would encourage p.o. fluids. I would recommend repeating BMP and magnesium levels to monitor his potassium and magnesium levels. At this time, all of those labs are at baseline and within normal limits. TIME SPENT: Time spent on this consultation was 45 minutes, more than half that time was spent with the patient reviewing events leading thus far to his hospitalization, performing physical exam, and reviewing my plan of care. At this time, we will sign off on his case. If further recommendations are needed, please do not hesitate to contact us. I have discussed this with my attending, Dr. Alvin Tijerina; he is in agreement with my plan. NEHAL GALLOWAY, ALYSHA [id number]/CPS #: [id number] MOE
--- NOTE | 2018-12-13 15:51 | PN ---
Subjective - Subjective Date of Service: 12/13/18 Service Type: [id number] Hosp care 15 min low complexity Subjective: Alec continues to report hyperreligious thoughts. he reports that he does not want to be visited by his mother. he wants to be visited by his girlfriend Bessie. He also speaks of wanting to be to her by this life underwriter if as he has heard this life underwriter is an workers compensation paralegal. This life underwriter informed him he is not an workers compensation paralegal. Alec does agree that he is manic and psychotic, and agrees that he needs treatment to recover, but does not appear to have a clear understanding of his situation nevertheless. Objective - Appearance Appearance: Well Developed/Nourished, Healthy Appearing Dysmorphic Features: No Hygiene: Normal Grooming: Well Kept - Behavior Psychomotor Activities: Normal Exhibits Abnormal Movement: No - Attitude and Relatedness Attitude and Relatedness: Psychotically Related - and pleasantly so Eye Contact: Good - and intense, prolonged - Speech Quality: Unpressured Latencies: Normal Quantity: Copious - Mood Patient's Decription of Mood: "Good" - Affect Observed Affect: Constricted - Thought Process Patient's Thought Process: Loose Associations Thought Content: Yes Paranoid Ideation, No Passive Wish, No Suicidal Planning, No Homicidal Ideation - Sensorium Experiencing Hallucinations: No, Sensorium is Clear - Level of Consciousness Level of Consciousness: Alert Orientation: Yes Intact, Yes Orientated to Time, Yes Orientated to Place, Yes Orientated to Person - though refers to this life underwriter as 'Fransisco', not role appropriate - Impulse Control Impulse Control: Intact - Insight and Judgement Insight and Judgement: Impaired - Group Participation Particating in Group Activities: No - Medication Management Medication Management Adherence: Yes Assessment - Assessment Merits Inpatient Hospitalization: For Immediate Safety, For Stabilization, Pending Safe DC Plan Inpatient 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 Since admission he has been intrusive with staff and peers and has been acting bizarre. He can be pleasantly engaged and even agrees with this life underwriter's assessment that he is suffering from katt producing psychosis, but appears to have limited insight and continues to adhere to hyperreligious delusions. Nurse Galloway's assessment is that his tachycardia may be from dehydration and his current manic/psychotic/anxious state. He agreed to asks staff to help find activities to engender a calmer frame of mind. Plan - Plan Treatment Plan: Name: ALEC GIRON Birthdate: 1995 [id number] Plan Mother reports Valium has led to psychosis in the past, and patient agreeable to consolidation of benzodiazepine to standing dose Klonopin 1 mg AM and 2 mg HS against katt, insomnia. Also add Zyprexa 5 mg q4hrs prn agitation/ psychosis. Monitor vital signs Q12H, americo HR Goals to include increase sleep and improve organization of thoughts and behaviors. Medications: Current Medications Acetaminophen (Tylenol Tab*) 650 mg PO Q4H PRN PRN Reason: PAIN Last Admin: 12/13/18 03:23 Dose: 650 mg Clonazepam (Klonopin Tab(*)) 0.5 mg PO 0900,1300,1800 [facility] Last Admin: 12/13/18 13:47 Dose: 0.5 mg Diazepam (Valium Tab(*)) 10 mg PO BEDTIME [facility] [place] Carbonate ([place] Carbonate Cap) 450 mg PO BID [facility] Last Admin: 12/13/18 07:41 Dose: 450 mg Quetiapine Fumarate (Seroquel Tab*) 200 mg PO BEDTIME [facility] Last Admin: 12/12/18 19:16 Dose: 200 mg Quetiapine Fumarate (Seroquel Tab*) 200 mg PO DAILY [facility] Last Admin: 12/13/18 07:41 Dose: 200 mg - Discharge Plan Discharge Plan: Outpatient Follow Up
[2018-12-13] MEDS: OLANzapine TAB* 5 MG PO PRN ×2 (16:14→21:01)
[2018-12-13] MEDS: clonazePAM TAB(*) 1 MG PO SCH ×2 (17:23→20:17)
--- NOTE | 2018-12-13 17:39 | PN ---
Progress Note - Progress Note Date of Service: 12/13/18 Note: Patient has continue hyperverbal and hyper-yazidism behavior. Patient seen on MHU in open area. No physical complaints, denies headache, neck pain. Selected Entries 12/12/18 12/13/18 12/13/18 12:19 15:57 17:23 Pulse Rate 104 Respiratory 16 16 16 Rate Blood Pressure 141/79 (mmHg) Alert, cooperative Patient wanted to discuss various philosophical and yazidism issues. A/P: apparent psychotic disorder, either bipolar or schizophrenia No medical cause identified so far. Lupus, Lyme in differential given neck stiffness on admission. Unusual stroke or neoplasm also possible. Will check Lyme, ELSY in AM. MRI brain when available.
[2018-12-13] MEDS ORDERED: Diazepam TAB(*) 10 MG PO SCH (21:00)
[2018-12-14] MEDS: QUEtiapine TAB* 100 MG PO SCH ×2 (07:29→21:06)
[2018-12-14] MEDS: clonazePAM TAB(*) 1 MG PO SCH ×2 (07:30→21:05)
[2018-12-14] MEDS: Lithium Carbonate CAP 150 MG ** CAPSULE PO SCH ×2 (07:31→19:54)
[2018-12-14] MEDS ORDERED: diPHENhydraMINE PO* 50 MG ONE (08:27)
[2018-12-14 08:40] LABS: BUN/Creatinine Ratio 11.8 (8-20); Calcium 9.6 mg/dL (8.6-10.3); EGFR African American 119.8 (>60); Magnesium 2.1 mg/dL (1.9-2.7)
[2018-12-14] MEDS ORDERED: diPHENhydraMINE PO* 50 MG PO ONE (08:55)
--- NOTE | 2018-12-14 09:32 | PN ---
Subjective Date of Service: 12/14/18 Interval History: This morning after morning meds patient had swelling of tongue, and difficulty speaking. No SOB or confusion reported. Nurse on unit reports he is still psychotic, very verbal, a bit more aggressive. He received benadryl PO after the incident and he is now sleeping. Family History: Unchanged from Admission Social History: Unchanged from Admission Past Medical History: Unchanged from Admission Objective Active Medications: Acetaminophen (Tylenol Tab*) 650 mg PO Q4H PRN PRN Reason: PAIN Last Admin: 12/13/18 03:23 Dose: 650 mg Clonazepam (Klonopin Tab(*)) 1 mg PO DAILY [facility] Last Admin: 12/14/18 07:30 Dose: 1 mg Clonazepam (Klonopin Tab(*)) 2 mg PO BEDTIME [facility] Last Admin: 12/13/18 20:17 Dose: 2 mg Clonazepam (Klonopin Tab(*)) 0.5 mg PO BID PRN PRN Reason: ANXIETY [place] Carbonate ([place] Carbonate Cap) 450 mg PO BID [facility] Last Admin: 12/14/18 07:31 Dose: 450 mg Olanzapine (Zyprexa Tab*) 5 mg PO Q4H PRN PRN Reason: agitation/psychosis Last Admin: 12/13/18 21:01 Dose: 5 mg Quetiapine Fumarate (Seroquel Tab*) 200 mg PO BEDTIME [facility] Last Admin: 12/13/18 20:17 Dose: 200 mg Quetiapine Fumarate (Seroquel Tab*) 200 mg PO DAILY [facility] Last Admin: 12/14/18 07:29 Dose: 200 mg Vital Signs - 8 hr 12/14/18 12/14/18 07:30 07:37 Temperature 36.6 C Pulse Rate 91 Respiratory 16 16 Rate Blood Pressure 127/84 (mmHg) O2 Sat by Pulse 100 Oximetry Oxygen Devices in Use Now: None Appearance: somnolent, arouses to touch Ears/Nose/Mouth/Throat: Clear Oropharnyx, - - tongue not enlarged, no lesions Neck: NL Appearance and Movements; NL JVP Respiratory: Clear to Auscultation Cardiovascular: NL Sounds; No Murmurs; No JVD Neurological: - - somnolent, makes eye contact briefly when touched, drifts back to sleep, mumbling Nutrition: Taking PO's Result Diagrams: 12/12/18 08:45 12/14/18 08:06 Additional Lab and Data: Lyme, HIV, ELSY pending Assess/Plan/Problems-Billing Assessment: 23 year old man w/ apparent 1st psychotic break, psychiatry consulting with medicine to rule out organic factors. - Patient Problems (1) Psychosis Current Visit: Yes Status: Acute Priority: High Comment: -differential includes mainly schizophrenia or severe katt -less likely lupus, Lyme disease, UPPER TRIMMER infection, stroke, neoplasm -labs and MRI brain are pending. (2) Mild tongue swelling Current Visit: Yes Status: Acute Priority: Medium Code(s): R22.0 - LOCALIZED SWELLING, MASS AND LUMP, HEAD SNOMED Code(s): 359350606 Comment: -Suspect this is either allergic in nature, consider stopping seroquel. Netos can also cause allergy. -could be acute dystonic reaction, would add benztropine daily. Status and Disposition: Will follow with you
[2018-12-14] MEDS ORDERED: Benztropine INJ* 1 MG/ML 2 ML AMP SLOW PUSH ONE (09:39)
[2018-12-14] MEDS ORDERED: Benztropine INJ* 1 MG/ML 2 ML AMP IM ONE (10:00)
[2018-12-14 10:03] LABS: Potassium 4.4 mmol/L (3.5-5.0)
[2018-12-14] MEDS ORDERED: QUEtiapine TAB* 25 MG PO PRN (11:58)
--- NOTE | 2018-12-14 12:29 | PN ---
Progress Note - Progress Note Date of Service: 12/14/18 Note: Received call at home at 0830 that patient had complaint of swollen tongue after receiving AM doses of Klonopin, Seroquel and lithium at 0730. Ordered 50 mg diphenhydramine po and requested hospitalist to assess. Hospitalist Dr Guthrie saw patient, assessed as dystonic vs allergic reaction, benztropine 1 mg IM was given. Zyprexa has been discontinued to simplify assessment, and Seroquel 50 mg q6 hrs prn ordered against agitation/psychosis instead of zyprexa , allowing TDD Seroquel up to 600 mg. Nurse communication order placed to [facility] to allow assessment after each for any recurrence of symptoms reported this morning. Also ordered benztropine 1 mg po bid against possible dystonia. Mr Urbina remains hyperreligious and delusional, but at the time of this note is sleeping soundly.
[2018-12-14] MEDS: clonazePAM TAB(*) 0.5 MG PO PRN (17:35)
[2018-12-14] MEDS: Benztropine TAB* 1 MG PO SCH (21:05)
[2018-12-14] MEDS: chlorproMAZINE TAB* 50 MG PO PRN (21:48)
[2018-12-14] MEDS: diPHENhydraMINE PO* 50 MG PO PRN (22:27)
[2018-12-15] MEDS: clonazePAM TAB(*) 1 MG PO SCH ×2 (07:39→19:44)
[2018-12-15] MEDS: chlorproMAZINE TAB* 50 MG PO PRN (07:39)
[2018-12-15] MEDS: Benztropine TAB* 1 MG PO SCH ×2 (07:39→19:51)
[2018-12-15] MEDS: diPHENhydraMINE PO* 50 MG PO PRN (07:39)
[2018-12-15] MEDS ORDERED: clonazePAM TAB(*) 1 MG PO SCH (09:00)
[2018-12-15] MEDS: QUEtiapine TAB* 100 MG PO SCH ×2 (09:15→19:44)
[2018-12-15] MEDS: Lithium Carbonate CAP 150 MG ** CAPSULE PO SCH ×2 (09:15→19:44)
--- NOTE | 2018-12-15 10:27 | PN ---
Subjective - Subjective Date of Service: 12/15/18 Service Type: 70056 Hosp care 35 min high complexity Subjective: Patient was seen and evaluated today. Over the weekend patient experienced swelling of the tongue and was given IM cogentin and Benadryl. Patient remains pre occupied about jewish. He reported that if the lord asked him to he would live his life like a perez. He reports that the lord talks to him. Over the weekend the patient was disruptive to the unit by being intrusive with staff and peers. He pulled a pitched away from staff resulting in them being cut. His mother left a message with recommendations multiple medication recommendations. No report of family visitation over the weekend. She said that she prefers for him to be closer to her and would like him to be transferred to a hospital closer to her. When sports writer returned her call she asked 3 times in same conversation when he would be completely taken off of medications. Objective - Appearance Dysmorphic Features: No Hygiene: Normal Grooming: Disheveled - Behavior Psychomotor Activities: Abnormal-Increased Exhibits Abnormal Movement: No - Attitude and Relatedness Attitude and Relatedness: Psychotically Related Eye Contact: Fair - Speech Quality: Pressured Latencies: Short Quantity: Copious - Mood Patient's Decription of Mood: "Fine" - Affect Observed Affect: Expansive Affect Consistent with: Euphoria - Thought Process Patient's Thought Process: Circumstantial Thought Content: Yes Passive Wish - see note, Yes Paranoid Ideation - see note , No Suicidal Planning, No Homicidal Ideation - Sensorium Experiencing Hallucinations: Yes Type of Hallucinations: Visual: No, Auditory: Yes - see note, Command: Yes - see note - Level of Consciousness Level of Consciousness: Alert Orientation: Yes Intact, Yes Orientated to Time, Yes Orientated to Place, Yes Orientated to Person - Impulse Control Impulse Control: Impaired - Insight and Judgement Insight and Judgement: Impaired - Group Participation Particating in Group Activities: No - Medication Management Medication Management Adherence: Yes Assessment - Assessment Merits Inpatient Hospitalization: For Immediate Safety 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 Since admission he has been intrusive with staff and peers and has been acting bizarre. Patient remains hyperverbal with disorganized thought process and has not shown adequate response to treatment. Plan - Plan Treatment Plan: Name: BERTRAM GIRON Birthdate: 1995 [id number] Plan Decrease lithium to 300mg BID Decrease klonopin to 0.5mg daily and 0.5mg BID PRN and 2mg qhs Decrease seroquel to 100mg daily and 200mg qhs. Decrease cogentin to 0.5mg BID. Q15 min monitoring Patient seems to be sedated and medications will be decreased. [place] level therapeutic level 0.66, without adequate treatment response Monitor vital signs Q12H Consult to Neurology for possible temporal involvement and or other neurological etiology. EEG ordered. To obtain past hospital records from [facility] MRI Brain Impression: " No intracranial lesion identified" Mother seems distrustful of providers and wishes to transfer hospital. Will continue to focus on building an trustful alliance patient provider and family. Patient is sensitive to anti-psychotics and easily experiences dystonia as he is naive to anti-psychotic treatment. However the patient continues to be disorganized and display signs of psychosis. Laboratory Results WBC 6.1 10^3/ul (3.5-10.8) 12/12/18 08:45 RBC 5.56 10^6/ul (4.00-5.40) H 12/06/18 18:03 Hgb 15.8 g/dl (14.0-18.0) 12/06/18 18:03 Hct 47 % (42-52) 12/06/18 18:03 MCV 84 fL (80-94) 12/06/18 18:03 MCH 28 pg (27-31) 12/06/18 18:03 MCHC 34 g/dl (31-36) 12/06/18 18:03 RDW 13 % (10.5-15) 12/06/18 18:03 Plt Count 181 10^3/ul (150-450) 12/06/18 18:03 MPV 9.7 fL (7.4-10.4) 12/06/18 18:03 Neut % (Auto) 79.3 % 12/06/18 18:03 Lymph % (Auto) 10.7 % 12/06/18 18:03 Emanuel % (Auto) 9.3 % 12/06/18 18:03 Eos % (Auto) 0.2 % 12/06/18 18:03 Baso % (Auto) 0.5 % 12/06/18 18:03 Absolute Neuts (auto) 11.1 10^3/ul (1.5-7.7) H 12/06/18 18:03 Absolute Lymphs (auto) 1.5 10^3/ul (1.0-4.8) 12/06/18 18:03 Absolute Monos (auto) 1.3 10^3/ul (0-0.8) H 12/06/18 18:03 Absolute Eos (auto) 0 10^3/ul (0-0.6) 12/06/18 18:03 Absolute Basos (auto) 0.1 10^3/ul (0-0.2) 12/06/18 18:03 Absolute Nucleated RBC 0 10^3/ul 12/06/18 18:03 Nucleated RBC % 0 12/06/18 18:03 Sodium 136 mmol/L (135-145) 12/14/18 08:06 Potassium 4.4 mmol/L (3.5-5.0) 12/14/18 08:06 Chloride 104 mmol/L (101-111) 12/14/18 08:06 Carbon Dioxide 26 mmol/L (22-32) 12/14/18 08:06 Anion Gap 6 mmol/L (2-11) 12/14/18 08:06 BUN 11 mg/dL (6-24) 12/14/18 08:06 Creatinine 0.93 mg/dL (0.67-1.17) 12/14/18 08:06 Est GFR ( Amer) 119.8 (>60) 12/14/18 08:06 Est GFR (Non-Af Amer) 99.0 (>60) 12/14/18 08:06 BUN/Creatinine Ratio 11.8 (8-20) 12/14/18 08:06 Glucose 91 mg/dL (70-100) 12/14/18 08:06 Hemoglobin A1c 4.8 % (4.0-5.6) 12/10/18 06:23 Lactic Acid 1.4 mmol/L (0.5-2.0) 12/06/18 18:03 Calcium 9.6 mg/dL (8.6-10.3) 12/14/18 08:06 Magnesium 2.1 mg/dL (1.9-2.7) 12/14/18 08:06 Total Bilirubin 1.30 mg/dL (0.2-1.0) H 12/06/18 18:03 AST 35 U/L (13-39) 12/06/18 18:03 ALT 20 U/L (7-52) 12/06/18 18:03 Alkaline Phosphatase 62 U/L (34-104) 12/06/18 18:03 Troponin I 0.00 ng/mL (<0.04) 12/06/18 18:03 Total Protein 8.0 g/dL (6.4-8.9) 12/06/18 18:03 Albumin 4.9 g/dL (3.2-5.2) 12/06/18 18:03 Globulin 3.1 g/dL (2-4) 12/06/18 18:03 Albumin/Globulin Ratio 1.6 (1-3) 12/06/18 18:03 Triglycerides 83 mg/dL 12/10/18 06:23 Cholesterol 149 mg/dL 12/10/18 06:23 LDL Cholesterol 95 mg/dL 12/10/18 06:23 HDL Cholesterol 37.1 mg/dL 12/10/18 06:23 Vitamin B12 506 pg/mL (180-914) 12/14/18 08:06 Folate > 20.00 ng/mL (>3.99) 12/12/18 08:45 TSH 1.05 mcIU/mL (0.34-5.60) 12/10/18 06:23 Salicylates < 2.50 mg/dL (<30) 12/06/18 18:03 Acetaminophen < 15 mcg/mL 12/06/18 18:03 [place] 0.66 mmol/L (0.6-1.2) 12/12/18 08:45 Serum Alcohol < 10 mg/dL (<10) 12/06/18 18:03 Vital Signs - 24 hr 12/14/18 12/14/18 12/14/18 11:07 17:35 19:38 Temperature Pulse Rate Respiratory 16 16 16 Rate Blood Pressure (mmHg) O2 Sat by Pulse Oximetry 12/14/18 12/14/18 12/14/18 21:05 21:48 22:27 Temperature Pulse Rate Respiratory 16 16 16 Rate Blood Pressure (mmHg) O2 Sat by Pulse Oximetry 12/14/18 12/14/18 12/14/18 22:46 23:15 23:50 Temperature Pulse Rate 101 Respiratory 18 18 Rate Blood Pressure 128/83 (mmHg) O2 Sat by Pulse 99 Oximetry 12/15/18 12/15/18 12/15/18 00:30 07:32 07:39 Temperature 97.7 F Pulse Rate 91 Respiratory 18 17 18 Rate Blood Pressure 143/88 (mmHg) O2 Sat by Pulse 100 Oximetry 12/15/18 12/15/18 10:33 10:34 Temperature Pulse Rate Respiratory 16 16 Rate Blood Pressure (mmHg) O2 Sat by Pulse Oximetry Continued Medication Management: Start Medication Medications: Current Medications Acetaminophen (Tylenol Tab*) 650 mg PO Q4H PRN PRN Reason: PAIN Last Admin: 12/13/18 03:23 Dose: 650 mg Benztropine Mesylate (Cogentin Tab*) 0.5 mg PO BID [facility] Clonazepam (Klonopin Tab(*)) 2 mg PO BEDTIME [facility] Last Admin: 12/14/18 21:05 Dose: 2 mg Clonazepam (Klonopin Tab(*)) 0.5 mg PO BID PRN PRN Reason: ANXIETY Last Admin: 12/14/18 17:35 Dose: 0.5 mg Clonazepam (Klonopin Tab(*)) 0.5 mg PO DAILY [facility] Last Admin: 12/15/18 09:11 Dose: Not Given [place] Carbonate ([place] Carbonate Cap) 300 mg PO BID [facility] Last Admin: 12/15/18 09:15 Dose: 300 mg Quetiapine Fumarate (Seroquel Tab*) 200 mg PO BEDTIME [facility] Last Admin: 12/14/18 21:06 Dose: 200 mg Quetiapine Fumarate (Seroquel Tab*) 100 mg PO DAILY [facility] Last Admin: 12/15/18 09:15 Dose: 100 mg - Discharge Plan Discharge Plan: Inpatient Hospitalization
--- NOTE | 2018-12-15 14:31 | PN ---
Subjective Date of Service: 12/15/18 Interval History: Patient sleeping, not aroused. No further reports of tongue swelling. He remains preoccupied about restorationism. Family History: Unchanged from Admission Social History: Unchanged from Admission Past Medical History: Unchanged from Admission Objective Active Medications: Acetaminophen (Tylenol Tab*) 650 mg PO Q4H PRN PRN Reason: PAIN Last Admin: 12/13/18 03:23 Dose: 650 mg Benztropine Mesylate (Cogentin Tab*) 0.5 mg PO BID [facility] Clonazepam (Klonopin Tab(*)) 2 mg PO BEDTIME [facility] Last Admin: 12/14/18 21:05 Dose: 2 mg Clonazepam (Klonopin Tab(*)) 0.5 mg PO BID PRN PRN Reason: ANXIETY Last Admin: 12/14/18 17:35 Dose: 0.5 mg [place] Carbonate ([place] Carbonate Cap) 300 mg PO BID [facility] Last Admin: 12/15/18 09:15 Dose: 300 mg Quetiapine Fumarate (Seroquel Tab*) 200 mg PO BEDTIME [facility] Last Admin: 12/14/18 21:06 Dose: 200 mg Quetiapine Fumarate (Seroquel Tab*) 100 mg PO DAILY [facility] Last Admin: 12/15/18 09:15 Dose: 100 mg Vital Signs - 8 hr 12/15/18 12/15/18 12/15/18 07:32 07:39 10:33 Temperature 36.5 C Pulse Rate 91 Respiratory 17 18 16 Rate Blood Pressure 143/88 (mmHg) O2 Sat by Pulse 100 Oximetry Oxygen Devices in Use Now: None Appearance: sleeping, no resp distress Result Diagrams: 12/12/18 08:45 12/14/18 08:06 Additional Lab and Data: Lyme, HIV, ELSY pending Diagnostic Imaging: MRI brain reviewed, no lesions Assess/Plan/Problems-Billing Assessment: 23 year old man w/ apparent 1st psychotic break, psychiatry consulting with medicine to rule out organic factors. - Patient Problems (1) Psychosis Current Visit: Yes Status: Acute Priority: High Comment: -differential includes mainly schizophrenia or severe katt -less likely lupus, Lyme disease, [employer] infection, stroke, neoplasm -labs are pending, otherwise medical workup complete -call hospitalist to re-consult if labs come back with any abnormalities (2) Mild tongue swelling Current Visit: Yes Status: Acute Priority: Medium Code(s): R22.0 - LOCALIZED SWELLING, MASS AND LUMP, HEAD SNOMED Code(s): 482341368 Comment: -Now off zyprexa, on seroquel. [place] can also cause allergy. -strongly suspect dystonic reaction, now on benztropine daily. Status and Disposition: psychiatry managing
[2018-12-15] MEDS: Propranolol TAB* 10 MG PO SCH ×2 (16:06→19:44)
[2018-12-15] MEDS: clonazePAM TAB(*) 0.5 MG PO PRN (16:07)
[2018-12-15] MEDS ORDERED: Haloperidol INJ IV/IM* 5 MG/ML AMP IM ONE (20:25)
[2018-12-15] MEDS ORDERED: diPHENhydraMINE IV* 50 MG/ML 1 ml VIAL (BENADRYL) IM ONE (20:25)
[2018-12-16] MEDS: Propranolol TAB* 10 MG PO SCH ×2 (08:02→20:53)
[2018-12-16] MEDS: Benztropine TAB* 1 MG PO SCH ×2 (08:03→20:52)
[2018-12-16] MEDS: QUEtiapine TAB* 100 MG PO SCH ×2 (08:03→20:54)
--- NOTE | 2018-12-16 08:07 | PN ---
Subjective - Subjective Date of Service: 12/16/18 Service Type: 32630 Hosp care 35 min high complexity Subjective: Nursing staff report. Patient continues to act disorganized and intrusive and bizzare. He required haldol 5mg IM overnight. Patient was seen and evaluated today in the day room. He was sexually pre occupied stating he wants to have sexual relations with multiple staff members. He went behind nursing desk answering phone. He stated that he will take the blood of his father, and was unable to provide a interpretation of the meaning. According to staff report he was seen pouring coffee on his bible. A conversation with his mother Slime ([phone]) this morning revealed that she doesnt have the name of the hospital that he was at 10 years ago. She inquired about transferring to hospitals near her. She was receptive at accepting that he is too unstable to be transferred to another hospital at this time. Objective - Appearance Appearance: Healthy Appearing Dysmorphic Features: No Hygiene: Normal Grooming: Disheveled - Behavior Psychomotor Activities: Abnormal-Increased Exhibits Abnormal Movement: No - Attitude and Relatedness Attitude and Relatedness: Minimally Cooperative Eye Contact: Fair - Speech Quality: Pressured Latencies: Short Quantity: Copious - Mood Patient's Decription of Mood: "Okay" - Affect Observed Affect: Euphoric Affect Consistent with: Euphoria - Thought Process Patient's Thought Process: Disorganized Thought Content: No Passive Wish, No Suicidal Planning, No Homicidal Ideation, No Paranoid Ideation - Sensorium Experiencing Hallucinations: No, Sensorium is Clear Type of Hallucinations: Visual: No, Auditory: No, Command: No - Level of Consciousness Level of Consciousness: Alert Orientation: Yes Intact, Yes Orientated to Time, Yes Orientated to Place, Yes Orientated to Person - Impulse Control Impulse Control: Poor - Insight and Judgement Insight and Judgement: Impaired - Group Participation Particating in Group Activities: No - Medication Management Medication Management Adherence: Yes Assessment - Assessment Merits Inpatient Hospitalization: For Immediate Safety Inpatient DSM-V Dx: F31.2 Clinical Impression: 23 year old single male no children, [employer] student, presented to the ED with 2 friends who found him after he was lost walking outside for hours and hyper islam. Since admission he has been intrusive with staff and peers and has been acting bizarre. Patient remains hyperverbal with disorganized thought process and has not shown adequate response to treatment. Plan - Plan Treatment Plan: Name: BERTRAM GIRON Birthdate: 1995 [id number] Plan Decrease lithium to 150mg BID Decrease klonopin to 0.5mg daily and 0.5mg BID PRN and 2mg qhs Decrease seroquel to 200mg qhs. Continue cogentin to 0.5mg BID. Continue propranolol 10mg BID Start Benadryl 50mg PRN QHS. Start Haldol 5mg BID Patient received haldol 5mg IM and was well tolerated without any dystonia or adverse outcome. Nursing staff advised to watch out for dystonic reaction and give IM cogentin 1mg if observed. Q15 min monitoring Patient appears less sedated today [place] level therapeutic level 0.66, without adequate treatment response Monitor vital signs Q12H Dr. Escobar from Neurology recommendations include following up on EEG results, MRI with contrast, and possible lumbar puncture for possible limbic encephalitis. Contact with mother this AM. She is unable to recall the facility in [place] to obtain past hospital records MRI w/o Brain Impression: " No intracranial lesion identified" A risk and benefit assessment of treatment was performed comparing the risks of psychotic features to that of adverse reactions to treatment. The benefits of treatment outweigh the risks at this time. Continued Medication Management: Start Medication Medications: Current Medications Acetaminophen (Tylenol Tab*) 650 mg PO Q4H PRN PRN Reason: PAIN Last Admin: 12/13/18 03:23 Dose: 650 mg Benztropine Mesylate (Cogentin Tab*) 0.5 mg PO BID [facility] Last Admin: 12/16/18 08:03 Dose: 0.5 mg Clonazepam (Klonopin Tab(*)) 2 mg PO BEDTIME [facility] Last Admin: 12/15/18 19:44 Dose: 2 mg Clonazepam (Klonopin Tab(*)) 0.5 mg PO BID PRN PRN Reason: ANXIETY Last Admin: 12/15/18 16:07 Dose: 0.5 mg [place] Carbonate ([place] Carbonate Cap) 300 mg PO BID [facility] Last Admin: 12/15/18 19:44 Dose: 300 mg Propranolol HCl (Inderal Tab*) 10 mg PO BID [facility] Last Admin: 12/16/18 08:02 Dose: 10 mg Quetiapine Fumarate (Seroquel Tab*) 200 mg PO BEDTIME [facility] Last Admin: 12/15/18 19:44 Dose: 200 mg Quetiapine Fumarate (Seroquel Tab*) 100 mg PO DAILY [facility] Last Admin: 12/16/18 08:03 Dose: 100 mg - Discharge Plan Discharge Plan: Inpatient Hospitalization
[2018-12-16] MEDS ORDERED: Haloperidol TAB* 5 MG PO ONE (09:00)
[2018-12-16] MEDS ORDERED: Benztropine INJ* 1 MG/ML 2 ML AMP IM PRN (09:09)
[2018-12-16] MEDS: Lithium Carbonate CAP 150 MG ** CAPSULE PO SCH ×2 (09:23→20:53)
--- NOTE | 2018-12-16 13:37 | EEG ---
ELECTROENCEPHALOGRAPHY: DATE OF SERVICE: 12/16/18 DATE READ: 12/16/18 ORDERED BY: Dr. Bret Olivas. MEDICATIONS: 1. Cogentin. 2. Klonopin. 3. [place]. 4. Seroquel. 5. Tylenol. 6. Thorazine. CLINICAL PROBLEM: Mr. Urbina is a 23-year-old man with acute psychosis. This EEG was obtained to ev aluate for epileptiform abnormalities or electrographic seizures. DURATION: 9:46 a.m. to 10:06 a.m. CLINICAL STATE: Awake. REPORT: The waking background showed appropriate organization with clearly defined anterior-posterio r voltage and frequency gradients. There was a well-defined posterior dominant rhythm of 11 Hz which was symmetrical and showed normal reactivity. Anteriorly, there was an expected pattern of lower vo ltage, irregular, mixed fast frequencies. In addition, there was superimposed low voltage diffuse ex cessive beta frequency seen throughout the recording. Movement artifact was seen predominantly in th e frontotemporal electrodes when the patient is moving, mimicking a slow frontal region. Photic stim ulation and hyperventilation were not performed. Throughout the recording, there were no epileptifor m discharges. CLINICAL IMPRESSION: This is an essentially waking EEG with diffuse low voltage excessive beta frequ ency, which can be seen in the setting of benzodiazepine use. There were no focal epileptiform abnorm alities. A normal interictal EEG does not exclude or support the diagnosis of epilepsy. Clinical co rrelation is recommended. [id number]/[facility] #: [id number]
--- NOTE | 2018-12-16 17:20 | CONS ---
NEUROLOGY CONSULTATION NOTE: DATE OF CONSULT: 12/16/18 CONSULTING PROVIDER: Dr. Bret Olivas. REASON FOR CONSULT: Acute psychosis. CHIEF COMPLAINT: "I want to make a good Meenu." HISTORY OF PRESENT ILLNESS: Mr. 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 The patient was evaluated in the ED by Dr. Amy Lewis. The history was mostly obtained by reviewing the electronic medical records. I called the patient's brother, Sonny, at 9:22 a.m., but there was no response. The patient was evaluated by Dr. Lewis on 12/06/18. Apparently , he was seen altered 5 hours before the hospitalization. He was supposed to go to [place] with a friend, but the patient did not show up on time. Therefore , the patient decided to walk to [place]. The distance of how far he walked is unclear. The patient was unaware how long he was walking for. He was apparently complaining of midline neck pain and double vision to friends and to Dr. Lewis. The patient was unable to elaborate on the double vision today, but interestingly, he informed the examiner that he was seeing the examiner as having 4 eyes and 2 heads that immediately resolved. Today, the patient stated that he is thankful for being here. He told the examiner, "Thank you, father." "Your badge is cool." "I have been reading the Bible and living the life of the Book." The patient also stated remarks like, "Winston is a false prophet and I want to make a good Meenu." The patient stated that he has a brother and a girlfriend. He also informed me that he was a magdalena that ruled equally with his father and that he became his father's body. The patient also stated that he supposedly has a as well as a girlfriend and stated that his is there for support and his girlfriend is there at times that when his other partner is not available. He denied any headaches. He denied any focal weakness or paresthesias. The only neurological complaint that he had earlier was the double vision, which seems to have resolved within seconds after it was reported to the examiner. He denied retro-oribital pain, headache, or droopy eyes. The patient has never had any history of neurological conditions or hospitalization. He has no stroke or seizures. He was admitted to the psychiatric unit for further evaluation for concerns that the patient may be a danger to himself and unable to appreciate his treatment needs. The patient was started on lithium, Seroquel, and Klonopin and he was admitted to the [facility] on voluntary admission. The patient had two past suicide attempts of cutting his wrist in sixth grade and in 2016. He does not have any followup care. The patient had a CT of the head that was unremarkable. This was completed on 12/06/18. He had a CT of the cervical spine completed on 12/06/18 that was also unremarkable. There is no spinal cord compression. The patient had an MRI of the brain without contrast completed on 12/15/18 that showed no evidence of temporal atrophy and otherwise, unremarkable study. He had an EEG done today that showed diffuse beta with no evidence of epileptiform discharges or interhemispheric asymmetry. The patient apparently continues to appear paranoid and frightened. He has disorganized thought and delusions. He is diagnosed with unspecific psychosis. According to Dr. Olivas, the patient was hospitalized 10 years ago for a mild psychosis that did not require any medical treatment. PAST MEDICAL HISTORY: Anxiety. He was tried on Abilify in the past and he developed a severe allergic reaction. MEDICATIONS: Current medications include acetaminophen 650 mg p.o. every 4 hours, benztropine 0.5 mg p.o. b.i.d., Klonopin 2 mg p.o. at bedtime, Klonopin 0.5 mg p.o. b.i.d. p.r.n. for anxiety, Benadryl 50 mg p.o. at bedtime, Haldol 5 mg p.o. b.i.d., lithium carbonate 150 mg p.o. b.i.d., propranolol 10 mg p.o. b.i.d., quetiapine 200 mg p.o. at bedtime. ALLERGIES: ABILIFY. FAMILY HISTORY: No family history of stroke of seizures. REVIEW OF SYSTEMS: A 14-point review of systems was otherwise negative, except for what was mentioned in the HPI. PHYSICAL EXAMINATION: Vitals: Temperature of 98.4, pulse rate of 76, respiratory rate of 16, oxygen saturation of 100%, blood pressure of 127/78. General: A well- nourished, well-developed man in no apparent distress. Head is normocephalic and atraumatic. Eyes: Conjunctivae/corneas are clear. Neck is supple and symmetrical with no carotid bruits. Lungs are clear to auscultation bilaterally. Cardiovascular: Regular rate and rhythm with normal S1, S2. Extremities: Normal range of motion with no cyanosis. No hammertoes or high arches. Skin: No skin lesions or laceration. Psych: He has got a flat affect, irritable and agitated mood. He is paranoid. He has requested for me to call other members like Barbie and Karen, for which no one by that name was around at that time. Otherwise, with reassurement, he was able to complete the physical examination. Neurological Examination: Mental Status: He is awake, he is alert and oriented to person, place, but not time as he thought it was 2015, nor the general circumstances as he has no insight to his condition. Speech was hypophonic and slow, but most likely this is due to the antipsychotic therapy. Cranial Nerves: Normal confrontation testing. Pupils are mid range and reactive. Sensation is intact in the forehead, cheeks, and jaw region. No facial droop. He is able to hear throughout the history process. Normal strength against resistance. Tongue is symmetrical and midline with no atrophy or fasciculation. Motor Examination: No abnormal movements or pronator drift. Normal bulk and tone throughout. He had slight bradykinesia, but otherwise 5/5 strength throughout the upper and lower extremities. Reflexes 2+ in the brachioradialis, biceps, triceps, patella, and ankle and flexor plantar response bilaterally. Sensation is intact to light touch throughout. Coordination: Normal [id number] and rapid alternating movement. Gait: Narrow based, slightly bradykinetic. No shuffling. No ataxia. ASSESSMENT: This is a complicated case. Mr. Alec Urbina is a 23-year-old man with history of previous psychosis and suicide attempts who presented with hyperreligiosity, agitation, confusion, and paranoid disorganized thought processes. He is admitted to the [facility] for further evaluation of acute psychosis. Neurology was contacted to evaluate for possibly secondary neurological disorders that may mimic or present with acute psychosis. The patient's neurological examination is nonlateralizing. He did have subjective double vision on presentation to the ER as well as on the examination today, but that seemed to have resolved. He has no evidence of extraocular muscle weakness, retro-orbital pain, headaches, or ptosis. He had extensive workup with laboratory data showing no significant abnormality. His vitamin B12 is 506 , his TSH is 1.05. His lithium level is 0.46. Lyme total antibody is negative. HIV testing has been ordered. There is no reported history of alcohol use. Overall, I do suspect that the patient does have an underlying psychiatric condition manifesting as psychosis rather than a neurological problem. However , given his age, and the severity of the ongoing psychosis, other secondary causes of psychosis such as limbic encephalitis should be further evaluated. There are no clear factors to suggest the latter diagnosis since the patient has been hospitalized for over a week now with no significant progression or any signs of underlying neurological deterioration. For instance, I would suspect someone with limbic encephalitis to develop seizures or at least some abnormality on EEG. The MRI of the brain did not show any temporal atrophy or hyperintensity in that region, but we do still require a contrasted study. If he does not improve, moving forward with a lumbar puncture to check for cerebrospinal fluid analysis such as some hints of maybe a slight elevation in the protein and also sending out a paraneoplastic panel. RECOMMENDATIONS: I would recommend to confirm that the patient has no history of alcohol abuse. If he does, then to start him on thiamine supplementation. I have ordered for a repeat MRI of the brain with contrast. Following that, we may consider depending on the finding to proceed with a lumbar puncture to assess the cerebrospinal fluid for underlying inflammatory SR. PAYROLL MANAGER diseases. Continue the current psychiatric treatment. Please add neuro checks every 4 hours. Monitor the patient for any seizure activity (less likely to happen). We will continue to monitor. I have discussed the recommendation with Dr. Bret Olivas. TIME SPENT: Seventy-five minutes, of which more than 50% was spent on obtaining history, reviewing the medical record, examining the patient, and discussing the treatment plan as mentioned above. [id number]/[facility] #: [id number] [facility] MEDICAL CENTERMichelle
[2018-12-16] MEDS ORDERED: Gadoteridol* (CONTRAST) 279.3 MG/ML 10 ML IV ONE (17:24)
[2018-12-16] MEDS: clonazePAM TAB(*) 1 MG PO SCH (20:52)
[2018-12-16] MEDS: Haloperidol TAB* 5 MG PO SCH (20:53)
[2018-12-17] MEDS: Lithium Carbonate CAP 150 MG ** CAPSULE PO SCH (07:49)
[2018-12-17] MEDS: Haloperidol TAB* 5 MG PO SCH ×2 (07:49→20:49)
[2018-12-17] MEDS: Benztropine TAB* 1 MG PO SCH ×2 (07:49→20:49)
[2018-12-17] MEDS: Propranolol TAB* 10 MG PO SCH ×2 (07:49→20:48)
[2018-12-17] MEDS: Acetaminophen TAB* 325 MG PO PRN ×2 (08:12→20:51)
--- NOTE | 2018-12-17 08:18 | PN ---
Subjective - Subjective Date of Service: 12/24/18 Service Type: 10605 Hosp care 35 min high complexity Subjective: Nursing staff report. Patient continues to act disorganized and intrusive and bizzare. He did receive > 5 hours of sleep overnight. He was seen and evaluated this morning. He was walking the hallways. He was less intrusive overnight. Contact with his mother was made who stated that he was seen in September at [place] for insomnia and was given sleep medication that she was unable to recall that did not help with his sleep. Patient reported good sleep and appetite. He has not been attending group. Objective - Appearance Dysmorphic Features: No Hygiene: Normal Grooming: Disheveled - Behavior Psychomotor Activities: Abnormal-Increased Exhibits Abnormal Movement: No - Attitude and Relatedness Attitude and Relatedness: Regressed Eye Contact: Fair - Speech Quality: Pressured Latencies: Short Quantity: Copious - Mood Patient's Decription of Mood: "Okay" - Affect Observed Affect: Constricted Affect Consistent with: Euphoria - Thought Process Patient's Thought Process: Disorganized Thought Content: No Passive Wish, No Suicidal Planning, No Homicidal Ideation, No Paranoid Ideation - Sensorium Experiencing Hallucinations: No, Sensorium is Clear Type of Hallucinations: Visual: No, Auditory: No, Command: No - Level of Consciousness Level of Consciousness: Alert Orientation: Yes Intact, Yes Orientated to Time, Yes Orientated to Place, Yes Orientated to Person - Impulse Control Impulse Control: Impaired - Insight and Judgement Insight and Judgement: Impaired - Group Participation Particating in Group Activities: No - Medication Management Medication Management Adherence: Yes Assessment - Assessment 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 Since admission he has been intrusive with staff and peers and has been acting bizarre. Patient shows some improvement of sleep and thought organization. Plan - Plan Treatment Plan: Name: BERTRAM GIRON Birthdate: 1995 [id number] Plan Discontinue lithium Continue klonopin to 0.5mg BID and 0.5mg BID PRN and 2mg qhs Decrease seroquel to 100mg qhs. Continue cogentin to 0.5mg BID. Continue propranolol 10mg BID Continue Benadryl 50mg PRN QHS. Continue Haldol 5mg BID Nursing staff advised to watch out for dystonic reaction and give 1mg cogentin IM if signs are observed. Q15 min monitoring Monitor vital signs Q12H #Dr. Escobar from Neurology lumbar puncture for possible limbic encephalitis. #EEG results and MRI with contrast results are unremarkable. #ELSY level elevated. A risk and benefit assessment of treatment was performed comparing the risks of psychotic features to that of adverse reactions to treatment. The benefits of treatment outweigh the risks at this time. Continued Medication Management: Start Medication Medications: Current Medications Acetaminophen (Tylenol Tab*) 650 mg PO Q4H PRN PRN Reason: PAIN Last Admin: 12/17/18 08:12 Dose: 650 mg Benztropine Mesylate (Cogentin Tab*) 0.5 mg PO BID [facility] Last Admin: 12/17/18 07:49 Dose: 0.5 mg Clonazepam (Klonopin Tab(*)) 2 mg PO BEDTIME [facility] Last Admin: 12/16/18 20:52 Dose: 2 mg Clonazepam (Klonopin Tab(*)) 0.5 mg PO BID PRN PRN Reason: ANXIETY Last Admin: 12/15/18 16:07 Dose: 0.5 mg Diphenhydramine HCl (Benadryl Po*) 50 mg PO BEDTIME PRN PRN Reason: INSOMNIA Haloperidol (Haldol Tab*) 5 mg PO BID [facility] Last Admin: 12/17/18 07:49 Dose: 5 mg Propranolol HCl (Inderal Tab*) 10 mg PO BID [facility] Last Admin: 12/17/18 07:49 Dose: 10 mg Quetiapine Fumarate (Seroquel Tab*) 100 mg PO BEDTIME [facility] - Discharge Plan Discharge Plan: Inpatient Hospitalization
[2018-12-17] MEDS: clonazePAM TAB(*) 0.5 MG PO PRN (16:21)
[2018-12-17] MEDS: QUEtiapine TAB* 100 MG PO SCH (20:49)
[2018-12-17] MEDS: clonazePAM TAB(*) 1 MG PO SCH (20:49)
--- NOTE | 2018-12-17 21:17 | PN ---
Subjective Date of Service: 12/17/18 Interval History: Thinks he slept "all night" but may have had a dream. When asked if he has pain he states his achilles tendons are tight and has been walking on tip-toes. Alec attests that he sometimes sees images on the TV that others don't see. For example video game "[employer]", "[employer]" and sometimes a "beast". Likewise he sometimes sees words and pictures in books and newspapers that others don't see. His father is "Emmanual" who is in heaven, and does not want to dissapoint him. Denies chest pain, SOB. Gets headaches only when he sees people that look similar to him. For example "Jhonatan" who his "father" said was "the one who came before him[Alec]". Attests to being member of [employer] and is frustrated by their "Thou shalt not" views on things he really likes, such as videogames which he states he has not been able to do for 2.5 years. Denies rashs or sun sensitivity. When I state I would like to draw some more bloodwork he readily offers to " give all of my blood" twice. 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 Family History: Unchanged from Admission Social History: Unchanged from Admission Past Medical History: Unchanged from Admission Objective Active Medications: Acetaminophen (Tylenol Tab*) 650 mg PO Q4H PRN PRN Reason: PAIN Last Admin: 12/17/18 20:51 Dose: 650 mg Benztropine Mesylate (Cogentin Tab*) 0.5 mg PO BID [facility] Last Admin: 12/17/18 20:49 Dose: 0.5 mg Clonazepam (Klonopin Tab(*)) 2 mg PO BEDTIME [facility] Last Admin: 12/17/18 20:49 Dose: 2 mg Clonazepam (Klonopin Tab(*)) 0.5 mg PO BID PRN PRN Reason: ANXIETY Last Admin: 12/17/18 16:21 Dose: 0.5 mg Diphenhydramine HCl (Benadryl Po*) 50 mg PO BEDTIME PRN PRN Reason: INSOMNIA Haloperidol (Haldol Tab*) 5 mg PO BID [facility] Last Admin: 12/17/18 20:49 Dose: 5 mg Propranolol HCl (Inderal Tab*) 10 mg PO BID [facility] Last Admin: 12/17/18 20:48 Dose: 10 mg Quetiapine Fumarate (Seroquel Tab*) 100 mg PO BEDTIME [facility] Last Admin: 12/17/18 20:49 Dose: 100 mg Vital Signs - 8 hr 12/17/18 12/17/18 12/17/18 16:21 20:49 21:01 Respiratory 16 16 16 Rate Oxygen Devices in Use Now: None Appearance: NAD, eating dinner alone at table. Eyes: No Scleral Icterus Ears/Nose/Mouth/Throat: NL Teeth, Lips, Gums Neck: NL Appearance and Movements; NL JVP Respiratory: Symmetrical Chest Expansion and Respiratory Effort, Clear to Auscultation Cardiovascular: NL Sounds; No Murmurs; No JVD, RRR Abdominal: NL Sounds; No Tenderness; No Distention, No Hepatosplenomegaly Extremities: No Edema Skin: No Rash or Ulcers Neurological: Alert and Oriented x 3 Nutrition: Taking PO's Result Diagrams: 12/12/18 08:45 12/14/18 08:06 Additional Lab and Data: Lyme negative HIV nonreactive ELSY positive 1.7 Diagnostic Imaging: MRI brain reviewed, no lesions Assess/Plan/Problems-Billing Assessment: 23 year old man w/ apparent 1st psychotic break, psychiatry consulting with medicine to rule out organic factors. - Patient Problems (1) Psychosis Current Visit: Yes Status: Acute Priority: High Comment: -Leading cause is likely schizophrenia or severe katt -His ELSY was positive. This is nonspecific. We will get some more lab tests to rule out e/o lupus which can cause neuropyschiatric illness though of note he does not seem to have other signs or symptoms of this diseaese. Will get ds-DNA, complement C3, C4, C50, Antiphospholipid Abs, Quintanilla Ab, AntiRibosomal Ab, ESR and UA. TSH wnl but will get FT3 and TT3 as tachycardic now controlled with propranolo. Lyme disease screen negative, HIV negative, Syphyllis negative IgG, B12 wnl He has had 2 CT scans, 2 MRIs, EEG Neurology is pursuing LP (2) Tachycardia Current Visit: Yes Status: Acute Code(s): R00.0 - TACHYCARDIA, UNSPECIFIED SNOMED Code(s): 5344360 Comment: complete thyroid study evaluation with TT3, FT4. controlled with propranolol. Get UA (3) Mild tongue swelling Current Visit: Yes Status: Acute Priority: Medium Code(s): R22.0 - LOCALIZED SWELLING, MASS AND LUMP, HEAD SNOMED Code(s): 210110755 Comment: -resolved. - Now off zyprexa and lithium, on seroquel. - dystonic reaction suspected, now on benztropine daily. Status and Disposition: psychiatry managing
[2018-12-18] MEDS: Acetaminophen TAB* 325 MG PO PRN ×2 (03:10→17:37)
[2018-12-18] MEDS: clonazePAM TAB(*) 0.5 MG PO PRN (06:17)
[2018-12-18] MEDS: Benztropine TAB* 1 MG PO SCH ×2 (09:04→19:45)
[2018-12-18] MEDS: Haloperidol TAB* 5 MG PO SCH (09:06)
[2018-12-18] MEDS: Propranolol TAB* 10 MG PO SCH ×2 (09:06→19:44)
[2018-12-18 09:44] LABS: Free T4 0.86 ng/dL (0.61-1.12)
--- NOTE | 2018-12-18 11:06 | PN ---
Subjective - Subjective Date of Service: 12/18/18 Service Type: 22853 Hosp care 35 min high complexity Subjective: Nursing staff report. Patient picked up a stapler and raised it up. Slept overnight until 3 am Patient remains pre-occupied by finding a . He said he slept all night however nursing report said until 3am. 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 He said " I am in love with Lyn " He was seen and evaluated this morning. He observed was walking the hallways. Staff reports that he responds to redirection . Patient reported good appetite. He has not been attending group. He denied side effects from medication. Objective - Appearance Appearance: Well Developed/Nourished, Healthy Appearing Dysmorphic Features: No Hygiene: Normal Grooming: Fairly Well Kept - Behavior Psychomotor Activities: Abnormal-Increased Exhibits Abnormal Movement: No - Attitude and Relatedness Attitude and Relatedness: Superficially Cooperative Eye Contact: Fair - Speech Quality: Unpressured Latencies: Short Quantity: Copious - Mood Patient's Decription of Mood: "Fine" - Affect Observed Affect: Constricted Affect Consistent with: Euphoria - Thought Process Patient's Thought Process: Disorganized Thought Content: No Passive Wish, No Suicidal Planning, No Homicidal Ideation, No Paranoid Ideation - Sensorium Experiencing Hallucinations: No, Sensorium is Clear Type of Hallucinations: Visual: No, Auditory: No, Command: No - Level of Consciousness Level of Consciousness: Alert Orientation: Yes Intact, Yes Orientated to Time, Yes Orientated to Place, Yes Orientated to Person - Impulse Control Impulse Control: Impaired - Insight and Judgement Insight and Judgement: Impaired - Group Participation Particating in Group Activities: No - Medication Management Medication Management Adherence: Yes Assessment - Assessment Inpatient DSM-V Dx: F31.2 Clinical Impression: 23 year old single male no children, [employer] student, presented to the ED with 2 friends who found him after he was lost walking outside for hours and hyper alevism. Since admission he has been intrusive with staff and peers and has been acting bizarre. Patient shows slight improvement of sleep and thought organization. Plan - Plan Treatment Plan: Name: BERTRAM GIRON Birthdate: 1995 [id number] Plan Discontinue lithium Continue klonopin to 0.5mg BID and 0.5mg and 2mg qhs. D/C PRN klonopin due to possible dis-inhibition Continue seroquel to 100mg qhs. Continue cogentin to 0.5mg BID. Continue propranolol 10mg BID Continue Benadryl 50mg PRN QHS. Decrease Haldol 3mg BID Start zolpidem 5mg po at night for sleep Nursing staff advised to watch out for dystonic reaction and give 1mg cogentin IM if signs are observed. Q15 min monitoring Monitor vital signs Q12H #Follow up confirmatory lab results #EEG results and MRI with contrast results are unremarkable. A risk and benefit assessment of treatment was performed comparing the risks of psychotic features to that of adverse reactions to treatment. The benefits of treatment outweigh the risks at this time. Vital Signs Temp Pulse Resp BP Pulse Ox 97.0 F 87 16 122/71 100 12/17/18 07:46 12/17/18 07:46 12/18/18 09:06 12/17/18 07:46 12/17/18 07:46 Acetaminophen (Tylenol Tab*) 650 mg PO Q4H PRN PRN Reason: PAIN Last Admin: 12/18/18 03:10 Dose: 650 mg Benztropine Mesylate (Cogentin Tab*) 0.5 mg PO BID [facility] Last Admin: 12/18/18 09:04 Dose: 0.5 mg Clonazepam (Klonopin Tab(*)) 2 mg PO BEDTIME [facility] Last Admin: 12/17/18 20:49 Dose: 2 mg Clonazepam (Klonopin Tab(*)) 0.5 mg PO BID PRN PRN Reason: ANXIETY Last Admin: 12/18/18 06:17 Dose: 0.5 mg Diphenhydramine HCl (Benadryl Po*) 50 mg PO BEDTIME PRN PRN Reason: INSOMNIA Haloperidol (Haldol Tab*) 3 mg PO BID [facility] Propranolol HCl (Inderal Tab*) 10 mg PO BID [facility] Last Admin: 12/18/18 09:06 Dose: 10 mg Quetiapine Fumarate (Seroquel Tab*) 100 mg PO BEDTIME [facility] Last Admin: 12/17/18 20:49 Dose: 100 mg Zolpidem Tartrate (Ambien Tab*) 5 mg PO BEDTIME [facility] Vital Signs 12/17/18 12/17/18 12/17/18 11:49 16:21 20:49 Respiratory 16 16 16 Rate 12/17/18 12/18/18 12/18/18 21:01 00:48 06:17 Respiratory 16 16 15 Rate 12/18/18 09:06 Respiratory 16 Rate Continued Medication Management: Start Medication Medications: Current Medications Acetaminophen (Tylenol Tab*) 650 mg PO Q4H PRN PRN Reason: PAIN Last Admin: 12/18/18 03:10 Dose: 650 mg Benztropine Mesylate (Cogentin Tab*) 0.5 mg PO BID [facility] Last Admin: 12/18/18 09:04 Dose: 0.5 mg Clonazepam (Klonopin Tab(*)) 2 mg PO BEDTIME [facility] Last Admin: 12/17/18 20:49 Dose: 2 mg Clonazepam (Klonopin Tab(*)) 0.5 mg PO BID PRN PRN Reason: ANXIETY Last Admin: 12/18/18 06:17 Dose: 0.5 mg Diphenhydramine HCl (Benadryl Po*) 50 mg PO BEDTIME PRN PRN Reason: INSOMNIA Haloperidol (Haldol Tab*) 3 mg PO BID [facility] Propranolol HCl (Inderal Tab*) 10 mg PO BID [facility] Last Admin: 12/18/18 09:06 Dose: 10 mg Quetiapine Fumarate (Seroquel Tab*) 100 mg PO BEDTIME [facility] Last Admin: 12/17/18 20:49 Dose: 100 mg Zolpidem Tartrate (Ambien Tab*) 5 mg PO BEDTIME [facility] - Discharge Plan Discharge Plan: Inpatient Hospitalization
[2018-12-18] MEDS ORDERED: Ondansetron TAB* 4 MG PO ONE (13:28)
[2018-12-18] MEDS: Haloperidol TAB* 1 MG PO SCH (19:43)
[2018-12-18] MEDS: clonazePAM TAB(*) 1 MG PO SCH (19:44)
[2018-12-18] MEDS: QUEtiapine TAB* 100 MG PO SCH (19:44)
[2018-12-18] MEDS: Zolpidem TAB* 5 MG PO SCH (19:44)
[2018-12-18 19:50] LABS: Urine Appearance Cloudy; Urine Bilirubin Negative (Negative); Urine Blood Negative (Negative); Urine Color Yellow; Urine Glucose Negative (Negative); Urine Ketones Negative (Negative); Urine Nitrite Negative (Negative); Urine Protein Negative (Negative); Urine Specific Gravity 1.029 (1.010-1.030); Urine Urobilinogen Negative (Negative)
[2018-12-18] MEDS ORDERED: Ramelteon (NF) 8 MG TAB PO SCH (21:00)
--- NOTE | 2018-12-18 23:02 | PN ---
Subjective Interval History: Alec states he has chosen "reality" instead of "fantasy" and points to his book of revelations. He states he trusts me and Virgie (and no one else as everybody else is "intoxicated" on "Babylonian wine")who he is immediately trying to get her attention when she walks by, saying he is "scared" and wanting her to come back later to talk. He states his right forehead sometimes hurts. We are currently in the "[facility]" not currently on earth. He specifically mentions "Ezekial 9:6". Says his heels are sometimes tender and sometimes walks on his tippy-toes but this is not observed. Otherwise denies complaints. Had "head shaking" when he woke up. Per U stafff, he has been less aggressively intrusive compared to 2 days ago and think he is doing better off the lithium. 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 got into "wrong crowd". Denies other drugs since. Family History: Unchanged from Admission Social History: Unchanged from Admission Past Medical History: Unchanged from Admission Objective Active Medications: Acetaminophen (Tylenol Tab*) 650 mg PO Q4H PRN PRN Reason: PAIN Last Admin: 12/18/18 17:37 Dose: 650 mg Benztropine Mesylate (Cogentin Tab*) 0.5 mg PO BID [facility] Last Admin: 12/18/18 19:45 Dose: 0.5 mg Clonazepam (Klonopin Tab(*)) 2 mg PO BEDTIME [facility] Last Admin: 12/18/18 19:44 Dose: 2 mg Diphenhydramine HCl (Benadryl Po*) 50 mg PO BEDTIME PRN PRN Reason: INSOMNIA Haloperidol (Haldol Tab*) 3 mg PO BID [facility] Last Admin: 12/18/18 19:43 Dose: 3 mg Propranolol HCl (Inderal Tab*) 10 mg PO BID [facility] Last Admin: 12/18/18 19:44 Dose: 10 mg Quetiapine Fumarate (Seroquel Tab*) 100 mg PO BEDTIME [facility] Last Admin: 12/18/18 19:44 Dose: 100 mg Zolpidem Tartrate (Ambien Tab*) 5 mg PO BEDTIME [facility] Last Admin: 12/18/18 19:44 Dose: 5 mg Vital Signs - 8 hr 12/18/18 12/18/18 12/18/18 19:43 19:44 22:01 Respiratory 16 16 16 Rate Oxygen Devices in Use Now: None Appearance: NAD Eyes: No Scleral Icterus Ears/Nose/Mouth/Throat: NL Teeth, Lips, Gums, Mucous Membranes Moist Neck: NL Appearance and Movements; NL JVP, Trachea Midline Respiratory: Symmetrical Chest Expansion and Respiratory Effort, Clear to Auscultation Cardiovascular: NL Sounds; No Murmurs; No JVD, RRR Abdominal: NL Sounds; No Tenderness; No Distention Skin: No Rash or Ulcers Neurological: - - oriented to name. Result Diagrams: 12/12/18 08:45 12/14/18 08:06 Additional Lab and Data: Lyme negative HIV nonreactive ELSY positive 1.7 Laboratory Results - last 24 hr 12/18/18 12/18/18 12/18/18 06:38 09:49 19:15 ESR 7 Free T4 0.86 Total T3 85 L Urine Color Yellow Urine Appearance Cloudy Urine pH 5.0 Ur Specific [place] 1.029 Urine Protein Negative Urine Ketones Negative Urine Blood Negative Urine Nitrate Negative Urine Bilirubin Negative Urine Urobilinogen Negative Ur Leukocyte Esterase Negative Urine Glucose Negative Diagnostic Imaging: MRI brain reviewed, no lesions Assess/Plan/Problems-Billing Assessment: 23 year old man PMH PTSD and 2 suicide attemps presents with psychosis, psychiatry consulting with medicine to rule out organic factors. Schizophrenia favored. - Patient Problems (1) Psychosis Current Visit: Yes Status: Acute Priority: High Comment: Suspect most likely cause is schizophrenia or severe katt and in setting of initial insomnia. Continue antipsychotic managment per Psych. -His ELSY was positive. This is nonspecific. We will get some more lab tests to rule out e/o lupus which can cause neuropyschiatric illness though of note he does not seem to have other signs or symptoms of this diseaese and his first episodes of suicide attempt were back in 6th grade and 2016. I think it is etremely unlikely. f/u ds-DNA, complement C3, C4, C50, Antiphospholipid Abs, Quintanilla Ab, AntiRibosomal Ab. ESR wnl UA wnl TSH wnl; FT4 wnl and TT3 just barely below nl. Lyme disease screen negative HIV negative Syphyllis negative IgG B12 wnl He has had 2 CT scans, 2 MRIs, EEG Neurology was considering LP (2) Tachycardia Current Visit: Yes Status: Acute Code(s): R00.0 - TACHYCARDIA, UNSPECIFIED SNOMED Code(s): 9387086 Comment: thyroid studies unconcerning. controlled with propranolol. UA also wnl. (3) Mild tongue swelling Current Visit: Yes Status: Acute Priority: Medium Code(s): R22.0 - LOCALIZED SWELLING, MASS AND LUMP, HEAD SNOMED Code(s): 425368696 Comment: -resolved. - Now off zyprexa and lithium, on seroquel. - dystonic reaction suspected, now on benztropine daily. Status and Disposition: psychiatry managing
[2018-12-19] MEDS: Propranolol TAB* 10 MG PO SCH ×2 (07:43→22:07)
[2018-12-19] MEDS: Haloperidol TAB* 1 MG PO SCH ×2 (07:43→22:07)
[2018-12-19] MEDS: Benztropine TAB* 1 MG PO SCH (07:43)
--- NOTE | 2018-12-19 10:19 | PN ---
Subjective - Subjective Date of Service: 12/19/18 Service Type: 31291 Hosp care 35 min high complexity Subjective: Nursing staff report. Patient slept overnight, no incidence reported overnight. Patient stated this morning he is no longer scared of people and that he knows people are not against him and trying to help. He said that he wants to live in reality. He said that he doesnt want to have paranoid delusions anymore. He was seen and evaluated this morning. Staff reports that he is more responsive to redirection. Patient reported good appetite. He has not been attending group. He denied side effects from medication. Objective - Appearance Dysmorphic Features: No Hygiene: Normal Grooming: Well Kept - Behavior Psychomotor Activities: Normal Exhibits Abnormal Movement: No - Attitude and Relatedness Attitude and Relatedness: Cooperative Eye Contact: Fair - Speech Quality: Unpressured Latencies: Normal Quantity: Appropriate - Mood Patient's Decription of Mood: "Good" - Affect Observed Affect: Non-labile Affect Consistent with: Euthymia - Thought Process Patient's Thought Process: Circumstantial Thought Content: No Passive Wish, No Suicidal Planning, No Homicidal Ideation - Sensorium Type of Hallucinations: Visual: No, Auditory: No, Command: No - Level of Consciousness Level of Consciousness: Alert Orientation: Yes Intact, Yes Orientated to Time, Yes Orientated to Place, Yes Orientated to Person - Impulse Control Impulse Control: Intact - Insight and Judgement Insight and Judgement: Good - Group Participation Particating in Group Activities: No - Medication Management Medication Management Adherence: Yes Assessment - Assessment Merits Inpatient Hospitalization: For Immediate Safety Inpatient DSM-V Dx: 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 Since admission he has been intrusive with staff and peers and has been acting bizarre. Patient shows improvement of sleep and thought organization. Plan - Plan Treatment Plan: Name: BERTRAM GIRON Birthdate: 1995 [id number] Plan Continue klonopin to 0.5mg BID and 2mg qhs. Continue seroquel to 100mg qhs. Discontinue cogentin to 0.5mg BID. Continue propranolol 10mg BID Continue Benadryl 50mg PRN QHS. Decrease Haldol 1 mg BID Continue zolpidem 5mg po at night for sleep Nursing staff advised to watch out for dystonic reaction and give 1mg cogentin IM if signs are observed. Q15 min monitoring Monitor vital signs Q12H #Follow up confirmatory lab results #EEG results and MRI with contrast results are unremarkable. A risk and benefit assessment of treatment was performed comparing the risks of psychotic features to that of adverse reactions to treatment. The benefits of treatment outweigh the risks at this time. Vital Signs Temp Pulse Resp BP Pulse Ox 97.0 F 87 16 122/71 100 12/17/18 07:46 12/17/18 07:46 12/18/18 09:06 12/17/18 07:46 12/17/18 07:46 Acetaminophen (Tylenol Tab*) 650 mg PO Q4H PRN PRN Reason: PAIN Last Admin: 12/18/18 03:10 Dose: 650 mg Benztropine Mesylate (Cogentin Tab*) 0.5 mg PO BID [facility] Last Admin: 12/18/18 09:04 Dose: 0.5 mg Clonazepam (Klonopin Tab(*)) 2 mg PO BEDTIME [facility] Last Admin: 12/17/18 20:49 Dose: 2 mg Clonazepam (Klonopin Tab(*)) 0.5 mg PO BID PRN PRN Reason: ANXIETY Last Admin: 12/18/18 06:17 Dose: 0.5 mg Diphenhydramine HCl (Benadryl Po*) 50 mg PO BEDTIME PRN PRN Reason: INSOMNIA Haloperidol (Haldol Tab*) 3 mg PO BID [facility] Propranolol HCl (Inderal Tab*) 10 mg PO BID [facility] Last Admin: 12/18/18 09:06 Dose: 10 mg Quetiapine Fumarate (Seroquel Tab*) 100 mg PO BEDTIME [facility] Last Admin: 12/17/18 20:49 Dose: 100 mg Zolpidem Tartrate (Ambien Tab*) 5 mg PO BEDTIME [facility] Vital Signs 12/17/18 12/17/18 12/17/18 11:49 16:21 20:49 Respiratory 16 16 16 Rate 12/17/18 12/18/18 12/18/18 21:01 00:48 06:17 Respiratory 16 16 15 Rate 12/18/18 09:06 Respiratory 16 Rate Continued Medication Management: Start Medication Medications: Current Medications Acetaminophen (Tylenol Tab*) 650 mg PO Q4H PRN PRN Reason: PAIN Last Admin: 12/18/18 17:37 Dose: 650 mg Benztropine Mesylate (Cogentin Tab*) 0.5 mg PO BID [facility] Last Admin: 12/19/18 07:43 Dose: 0.5 mg Clonazepam (Klonopin Tab(*)) 2 mg PO BEDTIME [facility] Last Admin: 12/18/18 19:44 Dose: 2 mg Diphenhydramine HCl (Benadryl Po*) 50 mg PO BEDTIME PRN PRN Reason: INSOMNIA Haloperidol (Haldol Tab*) 1 mg PO BID [facility] Propranolol HCl (Inderal Tab*) 10 mg PO BID [facility] Last Admin: 12/19/18 07:43 Dose: 10 mg Quetiapine Fumarate (Seroquel Tab*) 100 mg PO BEDTIME [facility] Last Admin: 12/18/18 19:44 Dose: 100 mg Zolpidem Tartrate (Ambien Tab*) 5 mg PO BEDTIME [facility] Last Admin: 12/18/18 19:44 Dose: 5 mg - Discharge Plan Discharge Plan: Inpatient Hospitalization
--- NOTE | 2018-12-19 11:45 | PN ---
Subjective Date of Service: 12/19/18 Length of Stay: 11 Days Neurology is following for primary neurological causes for psychosis. Interval History: He is more calm today and shared information regarding his tough childhood. He misses his father who he hasn't seen since 7th grade. He focused on wanting to live in reality and not say bizarre things anymore. He notices the comments about his father being the [place] of the [facility]. According to staff, he is less irritable. He denied any headache, double vision, slurred speech, or focal weakness. 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 Review of Systems: Denied CP, SOB, or palpitations. Family History: Unchanged from Admission Social History: Unchanged from Admission Past Medical History: Unchanged from Admission Objective Active Medications: Acetaminophen (Tylenol Tab*) 650 mg PO Q4H PRN PRN Reason: PAIN Last Admin: 12/18/18 17:37 Dose: 650 mg Clonazepam (Klonopin Tab(*)) 2 mg PO BEDTIME [facility] Last Admin: 12/18/18 19:44 Dose: 2 mg Diphenhydramine HCl (Benadryl Po*) 50 mg PO BEDTIME PRN PRN Reason: INSOMNIA Haloperidol (Haldol Tab*) 1 mg PO BID [facility] Propranolol HCl (Inderal Tab*) 10 mg PO BID [facility] Last Admin: 12/19/18 07:43 Dose: 10 mg Quetiapine Fumarate (Seroquel Tab*) 100 mg PO BEDTIME [facility] Last Admin: 12/18/18 19:44 Dose: 100 mg Zolpidem Tartrate (Ambien Tab*) 5 mg PO BEDTIME [facility] Last Admin: 12/18/18 19:44 Dose: 5 mg Vital Signs 12/18/18 12/18/18 12/18/18 19:43 19:44 22:01 Pulse Rate Respiratory 16 16 16 Rate Blood Pressure (mmHg) O2 Sat by Pulse Oximetry 12/18/18 12/19/18 12/19/18 22:09 07:43 09:47 Pulse Rate 93 Respiratory 16 16 Rate Blood Pressure 120/71 (mmHg) O2 Sat by Pulse 100 Oximetry 12/19/18 10:06 Pulse Rate Respiratory 16 Rate Blood Pressure (mmHg) O2 Sat by Pulse Oximetry Intake and Output Last 24 Hours 12/17/18 12/18/18 12/19/18 12/20/18 06:59 06:59 06:59 06:59 Weight 189 lb 192 lb 6.4 oz Oxygen Devices in Use Now: None Neurology Exam: General: Well nourished man in no acute distress. HEENT: Normocephalic/atraumatic, sclera anicteric, mucous membranes moist Neck: Supple Extremities: No clubbing, cyanosis, or edema Neurological Findings: Awake and alert to self, place, and time. Speech: fluent without dysrhythmia Cranial Nerve: PERRL, EOM-I, no facial asymmetry. Motor: s/s throughout, proximal and distal extremities x4 tone Finger to nose, rapid alternating movements intact without tremor, no dysdiadochokinesia Gait: intact with good arm swing and stride Result Diagrams: 12/12/18 08:45 12/14/18 08:06 Additional Lab and Data: Lyme negative HIV nonreactive ELSY positive 1.7 Laboratory Results - last 24 hr 12/18/18 12/18/18 12/18/18 06:38 09:49 19:15 ESR 7 Free T4 0.86 Total T3 85 L Urine Color Yellow Urine Appearance Cloudy Urine pH 5.0 Ur Specific [place] 1.029 Urine Protein Negative Urine Ketones Negative Urine Blood Negative Urine Nitrate Negative Urine Bilirubin Negative Urine Urobilinogen Negative Ur Leukocyte Esterase Negative Urine Glucose Negative Diagnostic Imaging: MRI brain with contrast completed on 12/16/18: normal pre and post contrast brain MRI with no evidence of mesial temporal sclerosis. Personally reviewed. Assessment/Plan Mr. Alec Urbina is a 23-year-old man with no evidence of objective neurological findings, who is hospitalized for nonspecific psychosis. The patient's post contrast MRI did not show any evidence of temporal lobe atrophy or sclerosis. His overall condition is slowly improving. There has been no reported seizure activity. Overall, I don't think there is an ongoing primary neurological problem causing his psychiatric condition. If he develops any seizures, weakness, or paresthesia, please contact us to re-evaluate. There is no indication to proceed with a lumbar puncture to look for paraneoplastic limbic encephalitis at this time. Discussed with Dr. Olivas. Neurology will sign off.
--- NOTE | 2018-12-19 14:31 | PN ---
Subjective Date of Service: 12/19/18 Interval History: Asks whether I am the "good doctor" because the "other doctors were the bad doctors but you look like the good doctor." Tongue no longer causing discomfort No longer experiencing double vision Has no complaints Family History: Unchanged from Admission Social History: Unchanged from Admission Past Medical History: Unchanged from Admission Objective Active Medications: Acetaminophen (Tylenol Tab*) 650 mg PO Q4H PRN PRN Reason: PAIN Last Admin: 12/18/18 17:37 Dose: 650 mg Clonazepam (Klonopin Tab(*)) 2 mg PO BEDTIME [facility] Last Admin: 12/18/18 19:44 Dose: 2 mg Diphenhydramine HCl (Benadryl Po*) 50 mg PO BEDTIME PRN PRN Reason: INSOMNIA Haloperidol (Haldol Tab*) 1 mg PO BID [facility] Propranolol HCl (Inderal Tab*) 10 mg PO BID [facility] Last Admin: 12/19/18 07:43 Dose: 10 mg Quetiapine Fumarate (Seroquel Tab*) 100 mg PO BEDTIME [facility] Last Admin: 12/18/18 19:44 Dose: 100 mg Zolpidem Tartrate (Ambien Tab*) 5 mg PO BEDTIME [facility] Last Admin: 12/18/18 19:44 Dose: 5 mg Vital Signs - 8 hr 12/19/18 12/19/18 12/19/18 07:43 09:47 10:06 Respiratory 16 16 16 Rate Oxygen Devices in Use Now: None Appearance: NAD Eyes: No Scleral Icterus, PERRLA Ears/Nose/Mouth/Throat: NL Teeth, Lips, Gums, Clear Oropharnyx Neck: NL Appearance and Movements; NL JVP Respiratory: Symmetrical Chest Expansion and Respiratory Effort, Clear to Auscultation Cardiovascular: NL Sounds; No Murmurs; No JVD, RRR Abdominal: NL Sounds; No Tenderness; No Distention Lymphatic: No Cervical Adenopathy Extremities: No Edema Skin: No Rash or Ulcers Neurological: NL Sensation, NL Gait, NL Muscle Strength and Tone Result Diagrams: 12/12/18 08:45 12/14/18 08:06 Additional Lab and Data: Lyme negative HIV nonreactive ELSY positive 1.7 Laboratory Results - last 24 hr 12/18/18 12/18/18 12/18/18 06:38 09:49 19:15 ESR 7 Free T4 0.86 Total T3 85 L Urine Color Yellow Urine Appearance Cloudy Urine pH 5.0 Ur Specific [place] 1.029 Urine Protein Negative Urine Ketones Negative Urine Blood Negative Urine Nitrate Negative Urine Bilirubin Negative Urine Urobilinogen Negative Ur Leukocyte Esterase Negative Urine Glucose Negative Diagnostic Imaging: MRI brain with contrast completed on 12/16/18: normal pre and post contrast brain MRI with no evidence of mesial temporal sclerosis. Personally reviewed. Assess/Plan/Problems-Billing 23 M h/o PTSD, 2 past suicide attempts p/w psychosis - Patient Problems (1) Mild tongue swelling Comment: -resolved. - Now off zyprexa and lithium, on seroquel. (2) Psychosis Comment: schizophrenia suspected Continue antipsychotic managment per Psych. -His ELSY was positive. This is nonspecific. labs pending: ds-DNA, complement C3, C4, C50, Antiphospholipid Abs, Quintanilla Ab, AntiRibosomal Ab. ESR wnl UA wnl TSH wnl; FT4 wnl and TT3 just barely below nl. Lyme disease screen negative HIV negative Syphyllis negative IgG B12 wnl He has had 2 CT scans, 2 MRIs, EEG Neurology was considering LP (3) Tachycardia Comment: thyroid studies unconcerning. controlled with propranolol. UA also wnl. Status and Disposition: psychiatry managing will sign off for now please call with additional questions or concerns [phone]
[2018-12-19 17:13] LABS: Ribosomal Antibody <0.2 U; Sm (Smith) IgG Antibody <0.2 U
[2018-12-19 20:53] LABS: Phospholipid IgM AB 12.7 MPL
[2018-12-19 20:54] LABS: Phospholipid Ab IgG < 9.4 GPL; Phospholipid Ab IgM, S 14.5 MPL
[2018-12-19] MEDS: Zolpidem TAB* 5 MG PO SCH (22:07)
[2018-12-19] MEDS: clonazePAM TAB(*) 1 MG PO SCH (22:07)
[2018-12-19] MEDS: QUEtiapine TAB* 100 MG PO SCH (22:08)
[2018-12-19 22:40] LABS: Complement C3 93 mg/dL (75 - 175)
[2018-12-20] MEDS: diPHENhydraMINE PO* 50 MG PO PRN (00:35)
[2018-12-20] MEDS: Haloperidol TAB* 1 MG PO SCH ×2 (08:48→20:50)
[2018-12-20] MEDS: Propranolol TAB* 10 MG PO SCH ×2 (08:48→20:50)
[2018-12-20] MEDS: Zolpidem TAB* 5 MG PO SCH (20:50)
[2018-12-20] MEDS: QUEtiapine TAB* 100 MG PO SCH (20:50)
[2018-12-20] MEDS: clonazePAM TAB(*) 1 MG PO SCH (20:50)
[2018-12-21] MEDS: Haloperidol TAB* 1 MG PO SCH ×2 (07:59→21:08)
[2018-12-21] MEDS: Propranolol TAB* 10 MG PO SCH ×2 (07:59→21:08)
[2018-12-21] MEDS: QUEtiapine TAB* 100 MG PO SCH (21:07)
[2018-12-21] MEDS: Zolpidem TAB* 5 MG PO SCH (21:07)
[2018-12-21] MEDS: clonazePAM TAB(*) 1 MG PO SCH (21:08)
--- NOTE | 2018-12-22 08:52 | PN ---
Subjective - Subjective Date of Service: 12/22/18 Service Type: [id number] Hosp care 35 min high complexity Subjective: Nursing staff report. Patient slept overnight, no incidence reported overnight. 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 He reported that he would not like to talk about the bible as much as start talking about reality based things and himself. He denied side effects from medication. He denied feeling that people are out to get him, and feels safe on the unit. Weekend Staff report that he is more responsive to redirection. Police called the unit over the weekend because he was calling a number on multiple occasions. Patient reported good appetite. Objective - Appearance Appearance: Healthy Appearing Dysmorphic Features: No Hygiene: Normal Grooming: Fairly Well Kept - Behavior Psychomotor Activities: Normal Exhibits Abnormal Movement: No - Attitude and Relatedness Attitude and Relatedness: Superficially Cooperative Eye Contact: Fair - Speech Quality: Unpressured Latencies: Short Quantity: Copious - Mood Patient's Decription of Mood: "Fine" - Affect Observed Affect: Fair Affect Consistent with: Euthymia - Thought Process Patient's Thought Process: Loose Associations Thought Content: No Passive Wish, No Suicidal Planning, No Homicidal Ideation, No Paranoid Ideation - Sensorium Experiencing Hallucinations: No, Sensorium is Clear Type of Hallucinations: Visual: No, Auditory: No, Command: No - Level of Consciousness Level of Consciousness: Alert Orientation: Yes Intact, Yes Orientated to Time, Yes Orientated to Place, Yes Orientated to Person - Impulse Control Impulse Control: Tenuous - Insight and Judgement Insight and Judgement: Fair - Group Participation Particating in Group Activities: Yes - Medication Management Medication Management Adherence: Partial Assessment - Assessment 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 Since admission he has been intrusive with staff and peers and has been acting bizarre. Patient continues to show improvement of sleep and thought organization. Affect shows more range. Plan - Plan Treatment Plan: Name: BERTRAM GIRON Birthdate: 1995 [id number] Plan #Decrease klonopin 1mg qhs. #Discontinue seroquel to 100mg qhs. #Continue propranolol 10mg BID #Continue Benadryl 50mg PRN QHS. #Discontinue Haldol #Increase zolpidem to 10mg po at night for sleep #Phone calls to be dialed out by staff Q15 min monitoring Monitor vital signs Q12H #Family meeting with mother Saturday with possible discharge #Converted to voluntary admission signed and placed in chart Continued Medication Management: Start Medication Medications: Current Medications Acetaminophen (Tylenol Tab*) 650 mg PO Q4H PRN PRN Reason: PAIN Last Admin: 12/18/18 17:37 Dose: 650 mg Clonazepam (Klonopin Tab(*)) 2 mg PO BEDTIME [facility] Last Admin: 12/21/18 21:08 Dose: 2 mg Diphenhydramine HCl (Benadryl Po*) 50 mg PO BEDTIME PRN PRN Reason: INSOMNIA Last Admin: 12/20/18 00:35 Dose: 50 mg Propranolol HCl (Inderal Tab*) 10 mg PO BID [facility] Last Admin: 12/21/18 21:08 Dose: 10 mg Quetiapine Fumarate (Seroquel Tab*) 100 mg PO BEDTIME [facility] Last Admin: 12/21/18 21:07 Dose: 100 mg Zolpidem Tartrate (Ambien Tab*) 5 mg PO BEDTIME [facility] Last Admin: 12/21/18 21:07 Dose: 5 mg - Discharge Plan Discharge Plan: Inpatient Hospitalization
[2018-12-22] MEDS: Propranolol TAB* 10 MG PO SCH ×2 (08:57→20:46)
[2018-12-22] MEDS: Zolpidem TAB* 10 MG PO SCH (20:46)
[2018-12-22] MEDS: Acetaminophen TAB* 325 MG PO PRN (20:46)
[2018-12-22] MEDS ORDERED: clonazePAM TAB(*) 1 MG PO SCH (21:00)
[2018-12-22] MEDS: diPHENhydraMINE PO* 50 MG PO PRN (22:38)
[2018-12-23] MEDS: Propranolol TAB* 10 MG PO SCH ×2 (07:44→20:21)
--- NOTE | 2018-12-23 08:20 | PN ---
Subjective - Subjective Date of Service: 12/23/18 Service Type: [id number] Hosp care 25 min moderate complexity Subjective: Nursing staff report. Patient was up overnight, walking the halls. Patient stated that he is ready to go home tomorrow. He said that he felt tired last night but could not get to sleep. He talked about how he would like to get back home to write a thesis paper on the criminal justice system. Slime, his mother, was contacted and plans to drive tomorrow to pick him up. He plans to stay with her. He denied side effects from medication. He denied feeling that people are out to get him, and feels safe on the unit. He denied auditory and or visual hallucinations. Patient reported good appetite. Objective - Appearance Appearance: Healthy Appearing Dysmorphic Features: No Hygiene: Normal Grooming: Well Kept - Behavior Psychomotor Activities: Normal Exhibits Abnormal Movement: No - Attitude and Relatedness Attitude and Relatedness: Cooperative Eye Contact: Fair - Speech Quality: Unpressured Latencies: Normal Quantity: Appropriate - Mood Patient's Decription of Mood: "Fine" - Affect Observed Affect: Expansive Affect Consistent with: Euthymia - Thought Process Patient's Thought Process: Goal Directed Thought Content: No Passive Wish, No Suicidal Planning, No Homicidal Ideation, No Paranoid Ideation - Sensorium Experiencing Hallucinations: No, Sensorium is Clear Type of Hallucinations: Visual: No, Auditory: No, Command: No - Level of Consciousness Level of Consciousness: Alert Orientation: Yes Intact, Yes Orientated to Time, Yes Orientated to Place, Yes Orientated to Person - Impulse Control Impulse Control: Intact - Insight and Judgement Insight and Judgement: Good - Group Participation Particating in Group Activities: Yes - Medication Management Medication Management Adherence: Yes Assessment - Assessment 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 Since admission he has been intrusive with staff and peers and has been acting bizarre. Patient continues to show improvement of sleep and thought organization. Affect shows more range. Plan - Plan Treatment Plan: Name: BERTRAM GIRON Birthdate: 1995 [id number] Plan #Increase klonopin 2mg qhs. #Continue propranolol 10mg BID #Continue Benadryl 50mg PRN QHS. #Continue zolpidem to 10mg po at night for sleep #Phone calls to be dialed out by staff Q15 min monitoring Monitor vital signs Q12H #Family meeting with mother Saturday , plan for discharge on Saturday. #Converted to voluntary admission signed and placed in chart Goals include improve sleep. Although patient did not sleep his thought process content and organization have shown significant improvement. Continued Medication Management: Start Medication Medications: Current Medications Acetaminophen (Tylenol Tab*) 650 mg PO Q4H PRN PRN Reason: PAIN Last Admin: 12/22/18 20:46 Dose: 650 mg Clonazepam (Klonopin Tab(*)) 2 mg PO BEDTIME [facility] Diphenhydramine HCl (Benadryl Po*) 50 mg PO BEDTIME PRN PRN Reason: INSOMNIA Last Admin: 12/22/18 22:38 Dose: 50 mg Propranolol HCl (Inderal Tab*) 10 mg PO BID [facility] Last Admin: 12/23/18 07:44 Dose: 10 mg Zolpidem Tartrate (Ambien Tab*) 10 mg PO BEDTIME [facility] Last Admin: 12/22/18 20:46 Dose: 10 mg - Discharge Plan Discharge Plan: Inpatient Hospitalization
[2018-12-23] MEDS ORDERED: QUEtiapine TAB* 100 MG PO PRN (14:40)
[2018-12-23] MEDS: Zolpidem TAB* 10 MG PO SCH (20:22)
[2018-12-23] MEDS ORDERED: QUEtiapine TAB* 100 MG PO SCH (21:00)
[2018-12-23] MEDS ORDERED: clonazePAM TAB(*) 1 MG PO SCH (21:00)
[2018-12-23] MEDS: diPHENhydraMINE PO* 50 MG PO PRN (23:30)
[2018-12-24] MEDS: Acetaminophen TAB* 325 MG PO PRN (03:10)
[2018-12-24 08:10] VITALS: BP 121/68
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
[2018-12-24] MEDS: Propranolol TAB* 10 MG PO SCH (08:50)
[2018-12-24] MEDS ORDERED: QUEtiapine TAB* 100 MG PO SCH (21:00)
[2018-12-25 12:23] LABS: Adulterants Comment Normal; Creatinine, Urine 372.1 mg/dL; Fentanyl, Ur Not Detected ng/mL (Cutoff: 2); Hydrocodone, Ur Not Detected ng/mL (Cutoff: 25); Hydromorphone, Ur Not Detected ng/mL (Cutoff: 25); Morphine, Ur Not Detected ng/mL (Cutoff: 25); Norfentanyl, Ur Not Detected ng/mL (Cutoff: 2); Norhydrocodone, Ur Not Detected ng/mL (Cutoff: 25); Noroxycodone, Ur Not Detected ng/mL (Cutoff: 25); Oxycodone, Ur Not Detected ng/mL (Cutoff: 25); Specific Gravity 1.023; Tramadol, Ur Not Detected ng/mL (Cutoff: 25); Urine Barbiturates Negative; Urine Benzodiazepines Presumptive Positive ng/mL; Urine Cocaine Negative; Urine Phencyclidine Negative ng/mL (Cutoff: 25); Urine Tetrahydrocannabinol Negative ng/mL (Cutoff: 50)
[2018-12-25 12:24] LABS: UR 7 NH Clonazepam GC/MS 1188 ng/mL; UR 7 NH Flunitrazepam GC/MS Negative ng/mL (Cutoff: 50); UR Alpha OH Alprazolam GC/MS Negative; UR Alpha OH Triazolam GC/MS Negative; UR Benzodiazepine Interp Positive.; UR OH Ethyl Flurazepam GC/MS Negative; Urine Lorazepam GC/MS Negative; Urine Nordiazepam GC/MS Negative; Urine Oxazepam GC/MS 286 ng/mL; Urine Temazepam GC/MS 145 ng/mL
== END 2018-12-24 11:45 | disposition home or self-care (01) | DRG 885 ==
LOC: ED 15:42 → BSU 12-08 09:48
PROVIDERS: ADMIT Psychiatry & Neurology Psychiatry; ATTEND Psychiatry & Neurology Psychiatry
PROC: 4A00X4Z Measurement of Central Nervous Electrical Activity, External Approach (ICD-10-PCS; principal; 2018-12-08)
PROC: GZHZZZZ Group Psychotherapy (ICD-10-PCS; 2018-12-09)
DX: F31.2 Bipolar disorder, current episode manic severe with psychotic features (principal); F43.10 Post-traumatic stress disorder, unspecified; J45.909 Unspecified asthma, uncomplicated; R00.0 Tachycardia, unspecified; F41.9 Anxiety disorder, unspecified; Z88.8 Allergy status to other drugs, medicaments and biological substances; Z91.5 Personal history of self-harm; G47.00 Insomnia, unspecified; R45.1 Restlessness and agitation; R22.0 Localized swelling, mass and lump, head
CPT/HCPCS: 36415; 70450; 70551; 70553; 72125; 80048; 80053; 80061; 80178; 80307; 80320; 80329; 80346; 80364; 81003; 82565; 82607; 82746; 83036; 83516; 83605; 83735; 84439; 84443; 84479; 84484; 85025; 85048; 85652; 86038; 86147; 86160; 86162; 86225; 86235; 86592; 86618; 86703; 90853; 93005; 95816; 99222; 99231; 99232; 99233; 99238; 99284; A9270-GY; A9579; G0480; J0515; J1200; J1630